=== PATIENT | female | born 1970 | race Two or more races ===

== ENCOUNTER 2016-05-01 06:59 | Outpatient (CLI) | payer BC, OTHER ==
[~2016-05-01 06:59] MED LIST: FERR325T28 PO; LEVO75TA PO; SUMA25TA PO
[2016-05-01 08:27] LABS: BASOPHILS % (AUTO) 0.3 % (0.0-2.0); DIFF TOTAL % 100 %; EOSINOPHILS # (AUTO) 0.1 /CMM (0.0-0.7); EOSINOPHILS % (AUTO) 2.1 % (0.0-6.0); HEMATOCRIT 41 % (33-45); HEMOGLOBIN 13.6 g/dL (11.5-14.8); LYMPHOCYTES # (AUTO) 2.2 /CMM (0.8-4.8); LYMPHOCYTES % (AUTO) 34.5 % (20.0-44.0); MEAN CORPUSCULAR HEMOGLOBIN 29 PG (26.0-33.0); MEAN CORPUSCULAR HGB CONC 33 g/dl (31.0-36.0); MEAN CORPUSCULAR VOLUME 88 fL (82-100); MONOCYTES # (AUTO) 0.4 /CMM (0.1-1.30); MONOCYTES % (AUTO) 5.8 % (2.0-12.0); NEUTROPHILS # (AUTO) 3.7 /CMM (1.8-8.9); NEUTROPHILS % (AUTO) 57.3 % (43.0-81.0); PLATELET COUNT (AUTO) 322 /CMM (150-450); RED BLOOD CELL COUNT(AUTO) 4.63 MIL/uL (4.0-5.2); WHITE BLOOD COUNT (AUTO) 6.5 K/uL (4.3-11.0)
[2016-05-01 08:33] LABS: ALBUMIN 3.8 g/dL (3.4-5.0); BILIRUBIN,TOTAL 0.3 mg/dL (0.2-1.0); CALCIUM, SERUM 9.2 mg/dL (8.5-10.1); CREATININE 0.6 mg/dL (0.6-1.3)
[2016-05-01 08:41] LABS: THYROID STIMULATING HORMONE 2.786 uIU/mL (0.358-3.74)
== END 2016-05-01 23:59 | disposition home or self-care (01) ==
LOC: LAB 06:59
DX: K21.9 Gastro-esophageal reflux disease without esophagitis (principal); E03.9 Hypothyroidism, unspecified; D64.9 Anemia, unspecified
CPT/HCPCS: 36415; 80053-TC; 84443-TC; 85025-TC

== ENCOUNTER 2016-05-12 18:20 | Emergency (ER) | payer BC, OTHER ==
[~2016-05-12] VITALS: Ht 165.1 cm; Wt 68.9 kg
[2016-05-12 18:20] VITALS: BP 129/80
[2016-05-12] MEDS ORDERED: IV NS 0.9% 1,000 ML BAG IV ONE (19:00)
[2016-05-12] MEDS ORDERED: METOCLOPRAMIDE HCL 10 MG/2 ML VIAL IV ONE (19:00)
[2016-05-12] MEDS ORDERED: KETOROLAC TROMETHAMINE INJ 30 MG/ML VIAL IV ONE (19:00)
[2016-05-12] MEDS ORDERED: METOCLOPRAMIDE HCL 10 MG/2 ML VIAL ONE (19:10)
[2016-05-12] MEDS ORDERED: IV NS 0.9% 1,000 ML ONE (19:10)
[2016-05-12] MEDS ORDERED: KETOROLAC TROMETHAMINE INJ 30 MG/ML VIAL ONE (19:10)
[2016-05-12] MEDS ORDERED: IV SET PRIMARY 1 EA INFUS.SET MC ONE (19:10)
== END 2016-05-12 21:30 | disposition home or self-care (01) ==
LOC: ER 18:22
DX: G43.909 Migraine, unspecified, not intractable, without status migrainosus (principal); E03.9 Hypothyroidism, unspecified; R11.2 Nausea with vomiting, unspecified; Z90.49 Acquired absence of other specified parts of digestive tract; Z88.6 Allergy status to analgesic agent; Z88.8 Allergy status to other drugs, medicaments and biological substances
CPT/HCPCS: 70450-TC; A4606; J1885; J2765; J7030; Z7610

== ENCOUNTER 2016-10-17 12:10 | Outpatient (CLI) | payer BC | END 2016-10-17 23:59 | disposition home or self-care (01) | LOC: WOU 12:10 | PROVIDERS: ATTEND Podiatrist Foot & Ankle Surgery | DX: L84 Corns and callosities (principal); Z80.1 Family history of malignant neoplasm of trachea, bronchus and lung; Z80.0 Family history of malignant neoplasm of digestive organs; Z90.710 Acquired absence of both cervix and uterus; M20.41 Other hammer toe(s) (acquired), right foot; R60.0 Localized edema | CPT/HCPCS: 73630; 99214; A6402; G0463 ==

== ENCOUNTER 2016-11-02 13:27 | Emergency (ER) | payer BC, OTHER ==
[~2016-11-02] VITALS: Ht 162.6 cm; Wt 65.8 kg
--- NOTE | 2016-11-02 13:40 | NUR ---
PT TO ED ROOM 02. MIGRANE HEADACHE SINCE 299 WITH NO RELIEF FROM OTC MEDICATION . A/A/O. SIDE RAILS UP. HOB ELEVATED. CONNECTED TO [facility]. SEEN ND EVALUATED BY ED PROVIDER.
[2016-11-02] MEDS ORDERED: METOCLOPRAMIDE HCL 10 MG/2 ML VIAL IV ONE (14:00)
[2016-11-02] MEDS ORDERED: diphenhydrAMINE HCL 50 MG/ML VIAL IV ONE (14:00)
[2016-11-02] MEDS ORDERED: IV NS 0.9% 1,000 ML BAG IV ONE (14:00)
[2016-11-02] MEDS ORDERED: KETOROLAC TROMETHAMINE INJ 30 MG/ML VIAL IV ONE (14:00)
--- NOTE | 2016-11-02 14:22 | NUR ---
R AC G 18 IV STARTED.
--- NOTE | 2016-11-02 14:51 | NUR ---
MARY JANE Guy PA-C.
[2016-11-02] MEDS ORDERED: KETOROLAC TROMETHAMINE INJ 30 MG/ML VIAL ONE (14:52)
[2016-11-02] MEDS ORDERED: METOCLOPRAMIDE HCL 10 MG/2 ML VIAL ONE (14:53)
--- NOTE | 2016-11-02 15:54 | NUR ---
IV removed. Catheter intact and site benign. Pressure and 4x4 applied to site. No bleeding noted.Patient discharged to home in stable condition. Written and verbal after care instructions given. Patient verbalizes understanding of instruction.
[2016-11-02 15:55] VITALS: BP 118/72
== END 2016-11-02 15:56 | disposition home or self-care (01) ==
LOC: ER 13:29
DX: G43.909 Migraine, unspecified, not intractable, without status migrainosus (principal); E03.9 Hypothyroidism, unspecified; Z90.710 Acquired absence of both cervix and uterus; Z90.49 Acquired absence of other specified parts of digestive tract; Z88.6 Allergy status to analgesic agent; Z88.8 Allergy status to other drugs, medicaments and biological substances
CPT/HCPCS: 84703; 96361; 96374; 96375; 99284; A4606; J1885; J2765; J7030 ×2; Z7610

== ENCOUNTER 2017-01-10 12:22 | Emergency (ER) | payer BC, OTHER ==
[~2017-01-10] VITALS: Ht 162.6 cm; Wt 65.8 kg
[2017-01-10 12:22] VITALS: BP 118/78
[2017-01-10 12:50] LABS: APPEARANCE,URINE Clear (CLEAR); BILIRUBIN,URINE Negative (NEGATIVE); BLOOD, URINE Small Ery/uL (NEGATIVE); COLOR,URINE Yellow (YELLOW); KETONES,URINE Negative (NEGATIVE); LEUKOCYTE ESTERASE ,URINE Small (NEGATIVE); NITRITE, URINE Negative (NEGATIVE); PROTEIN,URINE Negative (NEGATIVE); UGLUCOSE Negative (NEGATIVE); UROBILINOGEN,URINE 0.2 EU/dL (0.2)
[2017-01-10 12:52] LABS: BACTERIA,URINE Few /HPF (None Seen); SQUAMOUS EPITHELIAL CELL,UR Few /HPF (None Seen)
== END 2017-01-10 13:10 | disposition home or self-care (01) ==
LOC: ER 12:26
DX: N39.0 Urinary tract infection, site not specified (principal); E03.9 Hypothyroidism, unspecified; G43.909 Migraine, unspecified, not intractable, without status migrainosus; Z90.710 Acquired absence of both cervix and uterus; Z79.899 Other long term (current) drug therapy
CPT/HCPCS: 81001; 84703; 99283; A4606; Z7610; 81000-TC

== ENCOUNTER 2017-04-03 12:00 | Emergency (ER) | payer BC, OTHER ==
[~2017-04-03] VITALS: Ht 165.1 cm; Wt 65.8 kg
[2017-04-03 12:00] VITALS: BP 127/75
[2017-04-03] MEDS ORDERED: HEPATITIS B VIRUS VACCINE-PF 20 MCG/VIAL VIAL IM ONE ×2 (14:00→14:08)
== END 2017-04-03 14:25 | disposition home or self-care (01) ==
LOC: ER 12:05
DX: Z77.21 Contact with and (suspected) exposure to potentially hazardous body fluids (principal); E03.9 Hypothyroidism, unspecified; Z90.710 Acquired absence of both cervix and uterus; Z90.49 Acquired absence of other specified parts of digestive tract; Z88.6 Allergy status to analgesic agent; Z88.8 Allergy status to other drugs, medicaments and biological substances; Z88.5 Allergy status to narcotic agent; W46.0XXA Contact with hypodermic needle, initial encounter; Y92.89 Other specified places as the place of occurrence of the external cause; Y93.89 Activity, other specified; Y99.0 Civilian activity done for income or pay
CPT/HCPCS: 36415; 86704; 86705; 86706; 86803; 90471; 99284; A4606; Z7610

== ENCOUNTER 2017-06-07 09:47 | Emergency (ER) | payer BC, OTHER ==
[~2017-06-07] VITALS: Ht 170.2 cm; Wt 72.6 kg
[2017-06-07] MEDS ORDERED: HYDROCODONE/APAP 5/325MG 1 EACH TABLET ONE (10:51)
[2017-06-07] MEDS ORDERED: ONDANSETRON 4 MG TAB.RAPDIS ONE (10:51)
[2017-06-07] MEDS ORDERED: SUMATRIPTAN SUCCINATE 6 MG/0.5 ML VIAL SQ ONE ×2 (10:51→11:00)
[2017-06-07] MEDS ORDERED: ONDANSETRON 4 MG TAB.RAPDIS PO ONE (11:00)
[2017-06-07] MEDS ORDERED: HYDROCODONE/APAP 5/325MG 1 EACH TABLET PO ONE (11:00)
--- NOTE | 2017-06-07 11:40 | NUR ---
Patient discharged to home in stable condition. Written and verbal after care instructions given. Patient verbalizes understanding of instruction.
[2017-06-07 11:59] VITALS: BP 128/71
== END 2017-06-07 12:00 | disposition home or self-care (01) ==
LOC: ER 09:48
DX: G43.909 Migraine, unspecified, not intractable, without status migrainosus (principal); E03.9 Hypothyroidism, unspecified; Z88.5 Allergy status to narcotic agent; Z90.710 Acquired absence of both cervix and uterus; Z88.6 Allergy status to analgesic agent; Z88.8 Allergy status to other drugs, medicaments and biological substances; Z90.49 Acquired absence of other specified parts of digestive tract
CPT/HCPCS: 96372; 99283; A4606 ×2; J3030; Q0162; Z7610 ×2

== ENCOUNTER 2017-07-11 19:43 | Emergency (ER) | payer BC ==
[~2017-07-11] VITALS: Ht 170.2 cm; Wt 72.6 kg
--- NOTE | 2017-07-11 20:00 | NUR ---
BB FAMILY C/O MIGRAINES WITH NAUSEA X1 DAY. VSS. AWAITING FOR EVALUATION. SAFETY AND COMFORT MEASURES PROVIDED. WILL MONITOR.
--- NOTE | 2017-07-11 21:30 | NUR ---
IV ACCESS STARTED. MEDICATED ORDERED.
[2017-07-11] MEDS ORDERED: diphenhydrAMINE HCL 50 MG/ML VIAL ONE (21:45)
[2017-07-11] MEDS ORDERED: METOCLOPRAMIDE HCL 10 MG/2 ML VIAL ONE (21:45)
[2017-07-11] MEDS ORDERED: KETOROLAC TROMETHAMINE INJ 30 MG/ML VIAL ONE (21:45)
[2017-07-11] MEDS ORDERED: METOCLOPRAMIDE HCL 10 MG/2 ML VIAL IV ONE (22:00)
[2017-07-11] MEDS ORDERED: IV NS 0.9% 250 ML BAG IV ONE (22:00)
[2017-07-11] MEDS ORDERED: diphenhydrAMINE HCL 50 MG/ML VIAL IV ONE (22:00)
[2017-07-11] MEDS ORDERED: KETOROLAC TROMETHAMINE INJ 30 MG/ML VIAL IV ONE (22:00)
--- NOTE | 2017-07-11 22:10 | NUR ---
PT REPORTS FEELING ANXIOUS. CHECK WRITING MACHINE OPERATOR MADE AWARE. ORDERS CARRIED OUT.
[2017-07-11] MEDS ORDERED: LORAZEPAM INJ 2 MG/ML VIAL ONE (22:18)
[2017-07-11] MEDS ORDERED: LORAZEPAM INJ 2 MG/ML VIAL IV ONE (22:30)
--- NOTE | 2017-07-11 23:05 | NUR ---
Pt ambulatory with a steady gait.
--- NOTE | 2017-07-11 23:10 | NUR ---
Patient discharged to home in stable condition. Written and verbal after care instructions given. Patient verbalizes understanding of instruction.
[2017-07-11 23:11] VITALS: BP 122/77
== END 2017-07-11 23:13 | disposition home or self-care (01) ==
LOC: ER 19:45
DX: G43.909 Migraine, unspecified, not intractable, without status migrainosus (principal); R11.0 Nausea; E03.9 Hypothyroidism, unspecified; Z90.49 Acquired absence of other specified parts of digestive tract; Z90.710 Acquired absence of both cervix and uterus; Z88.5 Allergy status to narcotic agent; Z88.8 Allergy status to other drugs, medicaments and biological substances
CPT/HCPCS: 96374; 96375; 99284; A4606; J1200; J1885; J2060; J2765; J7050; Z7610

== ENCOUNTER 2017-08-01 07:30 | Outpatient (CLI) | payer BC ==
[2017-08-01 09:04] LABS: APPEARANCE,URINE SL CLOUDY (CLEAR); BILIRUBIN,URINE NEGATIVE (NEGATIVE); BLOOD, URINE 2+ Ery/uL (NEGATIVE); COLOR,URINE YELLOW (YELLOW); KETONES,URINE NEGATIVE (NEGATIVE); LEUKOCYTE ESTERASE ,URINE NEGATIVE (NEGATIVE); NITRITE, URINE NEGATIVE (NEGATIVE); PROTEIN,URINE NEGATIVE (NEGATIVE); UGLUCOSE NEGATIVE (NEGATIVE); UROBILINOGEN,URINE 0.2 EU/dL (0.2)
[2017-08-01 09:11] LABS: BASOPHILS % (AUTO) 0.6 % (0.0-2.0); HEMATOCRIT 42 % (33-45); HEMOGLOBIN 14.3 g/dL (11.5-14.8); LYMPHOCYTES # (AUTO) 2.2 /CMM (0.8-4.8); LYMPHOCYTES % (AUTO) 35.9 % (20.0-44.0); MEAN CORPUSCULAR HGB CONC 35 g/dl (31.0-36.0); MEAN CORPUSCULAR VOLUME 86 fL (82-100); MONOCYTES # (AUTO) 0.4 /CMM (0.1-1.30); MONOCYTES % (AUTO) 5.9 % (2.0-12.0); NEUTROPHILS # (AUTO) 3.3 /CMM (1.8-8.9); NEUTROPHILS % (AUTO) 54.6 % (43.0-81.0); PLATELET COUNT (AUTO) 337 /CMM (150-450); RDW COEFFICIENT OF VARIATION 12.6 (11.5-15.0); WHITE BLOOD COUNT (AUTO) 6.1 K/uL (4.3-11.0)
[2017-08-01 09:39] LABS: BACTERIA,URINE Few /HPF (None Seen); SQUAMOUS EPITHELIAL CELL,UR Few /HPF (None Seen); WBC,URINE 0-2 /HPF (0-3)
[2017-08-01 09:45] LABS: ALBUMIN 3.9 g/dL (3.4-5.0); BILIRUBIN,TOTAL 0.3 mg/dL (0.2-1.0); CALCIUM, SERUM 9.6 mg/dL (8.5-10.1); CREATININE 0.6 mg/dL (0.6-1.3); POTASSIUM 4.1 mmol/L (3.5-5.1); TOTAL PROTEIN, SERUM 8.8 g/dL (6.4-8.2)
[2017-08-01 09:54] LABS: FREE T4 (FREE THYROXINE) 0.92 ng/dL (0.76-1.46); THYROID STIMULATING HORMONE 4.841 uIU/mL (0.358-3.74)
== END 2017-08-01 23:59 | disposition home or self-care (01) ==
LOC: LAB 07:30
DX: K21.9 Gastro-esophageal reflux disease without esophagitis (principal); E03.9 Hypothyroidism, unspecified; R53.81 Other malaise; R53.83 Other fatigue
CPT/HCPCS: 36415; 80053-TC; 80061-TC; 81000-TC; 84439-TC; 84443-TC; 84481; 85025-TC

== ENCOUNTER 2017-08-30 06:31 | Emergency (ER) | payer BC, OTHER ==
[~2017-08-30] VITALS: Ht 170.2 cm; Wt 63.5 kg
[2017-08-30 06:40] VITALS: BP 103/70
== END 2017-08-30 08:19 | disposition home or self-care (01) ==
LOC: ER 06:32
DX: S60.10XA Contusion of unspecified finger with damage to nail, initial encounter (principal); G43.909 Migraine, unspecified, not intractable, without status migrainosus; E03.9 Hypothyroidism, unspecified; Z90.710 Acquired absence of both cervix and uterus; Z90.49 Acquired absence of other specified parts of digestive tract; F41.9 Anxiety disorder, unspecified; Z88.5 Allergy status to narcotic agent; Z88.8 Allergy status to other drugs, medicaments and biological substances; W23.0XXA Caught, crushed, jammed, or pinched between moving objects, initial encounter; Y93.89 Activity, other specified; Y92.89 Other specified places as the place of occurrence of the external cause; Y99.8 Other external cause status
CPT/HCPCS: 29130; 73130; 99284; A4606; Z7610

== ENCOUNTER 2017-09-11 13:22 | Outpatient (CLI) | payer BC ==
[2017-09-12 08:08] LABS: FOLLICLE STIMULATION HORMONE 74.6 mIU/mL (.); LUTEINIZING HORMONE 35.8 mIU/mL (.); PROLACTIN 7.3 ng/mL (4.8-23.3)
== END 2017-09-11 23:59 | disposition home or self-care (01) ==
LOC: LAB 13:22
DX: R53.81 Other malaise (principal); R53.83 Other fatigue
CPT/HCPCS: 36415; 82670; 83001; 83002; 84146

== ENCOUNTER 2017-12-02 07:57 | Outpatient (CLI) | payer BC ==
[2017-12-02 08:31] LABS: BASOPHILS # (AUTO) 0.1 /CMM (0.0-0.2); BASOPHILS % (AUTO) 0.9 % (0.0-2.0); EOSINOPHILS % (AUTO) 1.9 % (0.0-6.0); HEMATOCRIT 38 % (33-45); HEMOGLOBIN 12.6 g/dL (11.5-14.8); LYMPHOCYTES # (AUTO) 2.5 /CMM (0.8-4.8); LYMPHOCYTES % (AUTO) 42.3 % (20.0-44.0); MEAN CORPUSCULAR HEMOGLOBIN 30 PG (26.0-33.0); MEAN CORPUSCULAR HGB CONC 33 g/dl (31.0-36.0); MEAN CORPUSCULAR VOLUME 90 fL (82-100); MONOCYTES # (AUTO) 0.4 /CMM (0.1-1.30); MONOCYTES % (AUTO) 7.4 % (2.0-12.0); NEUTROPHILS # (AUTO) 2.8 /CMM (1.8-8.9); NEUTROPHILS % (AUTO) 47.5 % (43.0-81.0); PLATELET COUNT (AUTO) 324 /CMM (150-450); RDW COEFFICIENT OF VARIATION 13.4 (11.5-15.0); RED BLOOD CELL COUNT(AUTO) 4.25 MIL/uL (4.0-5.2); WHITE BLOOD COUNT (AUTO) 5.9 K/uL (4.3-11.0)
[2017-12-02 08:42] LABS: ALBUMIN 3.6 g/dL (3.4-5.0); BILIRUBIN,TOTAL 0.2 mg/dL (0.2-1.0); CALCIUM, SERUM 8.5 mg/dL (8.5-10.1); CREATININE 0.6 mg/dL (0.6-1.3); TOTAL PROTEIN, SERUM 7.7 g/dL (6.4-8.2)
[2017-12-02 08:52] LABS: APPEARANCE,URINE SL CLOUDY (CLEAR); BILIRUBIN,URINE NEGATIVE (NEGATIVE); BLOOD, URINE 1+ Ery/uL (NEGATIVE); COLOR,URINE YELLOW (YELLOW); KETONES,URINE NEGATIVE (NEGATIVE); LEUKOCYTE ESTERASE ,URINE NEGATIVE (NEGATIVE); NITRITE, URINE NEGATIVE (NEGATIVE); PROTEIN,URINE NEGATIVE (NEGATIVE); UGLUCOSE NEGATIVE (NEGATIVE); UROBILINOGEN,URINE 0.2 EU/dL (0.2)
[2017-12-02 08:56] LABS: INR 0.93 (0.87-1.13)
[2017-12-02 09:04] LABS: BACTERIA,URINE Moderate /HPF (None Seen)
[2017-12-02 09:05] LABS: SQUAMOUS EPITHELIAL CELL,UR Moderate /HPF (None Seen); WBC,URINE 0-2 /HPF (0-3)
== END 2017-12-02 23:59 | disposition home or self-care (01) ==
LOC: LAB 07:57
DX: K21.9 Gastro-esophageal reflux disease without esophagitis (principal); R05 Cough; R53.83 Other fatigue
CPT/HCPCS: 36415; 71046; 80053-TC; 81000-TC; 85025-TC; 85610-TC; 85730-TC; 87086-TC

== ENCOUNTER 2017-12-06 06:23 | Day surgery (SDC) | payer BC ==
[2017-12-06] MEDS ORDERED: FENTANYL PF 100MCG/2ML AMPUL ONE ×2 (08:12→09:46)
[2017-12-06] MEDS ORDERED: MIDAZOLAM HCL 2 MG/2ML VIAL ONE (08:12)
[2017-12-06] MEDS ORDERED: BUPIVACAINE MPF 0.5% W/EPI INJ 30 ML VIAL ONE (08:38)
[2017-12-06] MEDS ORDERED: ONDANSETRON HCL/PF 4 MG/2 ML VIAL ONE (11:06)
== END 2017-12-06 12:35 | disposition home or self-care (01) ==
LOC: DS 06:23
PROVIDERS: ATTEND Surgery
DX: K40.90 Unilateral inguinal hernia, without obstruction or gangrene, not specified as recurrent (principal); K21.9 Gastro-esophageal reflux disease without esophagitis; E03.9 Hypothyroidism, unspecified; Z90.49 Acquired absence of other specified parts of digestive tract; Z80.9 Family history of malignant neoplasm, unspecified; Z79.899 Other long term (current) drug therapy
CPT/HCPCS: 49650; 64488; C1781; A6402; J0690; J2250; J2405; J2704; J2710; J3010; J3490; Z7610

== ENCOUNTER 2018-05-12 06:38 | Outpatient (CLI) | payer BC ==
[2018-05-12 08:38] LABS: BASOPHILS % (AUTO) 0.9 % (0.0-2.0); EOSINOPHILS % (AUTO) 2.5 % (0.0-6.0); HEMATOCRIT 42 % (33-45); HEMOGLOBIN 13.8 g/dL (11.5-14.8); LYMPHOCYTES # (AUTO) 2.4 /CMM (0.8-4.8); LYMPHOCYTES % (AUTO) 42.2 % (20.0-44.0); MEAN CORPUSCULAR HGB CONC 33 g/dl (31.0-36.0); MEAN CORPUSCULAR VOLUME 91 fL (82-100); MONOCYTES # (AUTO) 0.3 /CMM (0.1-1.30); MONOCYTES % (AUTO) 6.1 % (2.0-12.0); NEUTROPHILS # (AUTO) 2.7 /CMM (1.8-8.9); NEUTROPHILS % (AUTO) 48.3 % (43.0-81.0); PLATELET COUNT (AUTO) 309 /CMM (150-450); WHITE BLOOD COUNT (AUTO) 5.6 K/uL (4.3-11.0)
[2018-05-12 08:50] LABS: ALBUMIN 3.9 g/dL (3.4-5.0); BILIRUBIN,TOTAL 0.3 mg/dL (0.2-1.0); CREATININE 0.4 mg/dL (0.6-1.3)
[2018-05-12 08:56] LABS: T4 (THYROXINE) 8.7 ug/dL (4.7-13.3); THYROID STIMULATING HORMONE 4.853 uIU/mL (0.358-3.74)
[2018-05-12 10:17] LABS: APPEARANCE,URINE CLEAR (CLEAR); BILIRUBIN,URINE NEGATIVE (NEGATIVE); BLOOD, URINE 1+ Ery/uL (NEGATIVE); COLOR,URINE YELLOW (YELLOW); KETONES,URINE NEGATIVE (NEGATIVE); LEUKOCYTE ESTERASE ,URINE NEGATIVE (NEGATIVE); NITRITE, URINE NEGATIVE (NEGATIVE); PROTEIN,URINE NEGATIVE (NEGATIVE); UGLUCOSE NEGATIVE (NEGATIVE); UROBILINOGEN,URINE 0.2 EU/dL (0.2)
[2018-05-12 10:26] LABS: BACTERIA,URINE 1+ /HPF (None Seen)
[2018-05-12 10:27] LABS: SQUAMOUS EPITHELIAL CELL,UR Many /HPF (None Seen)
[2018-05-12 10:46] LABS: FREE T4 (FREE THYROXINE) 0.92 ng/dL (0.76-1.46)
== END 2018-05-12 23:59 | disposition home or self-care (01) ==
LOC: LAB 06:38
DX: D64.9 Anemia, unspecified (principal); E03.9 Hypothyroidism, unspecified; K21.9 Gastro-esophageal reflux disease without esophagitis; R53.81 Other malaise; R53.83 Other fatigue
CPT/HCPCS: 36415; 80053-TC; 81000-TC; 84436-TC; 84439-TC; 84443-TC; 84481; 85025-TC

== ENCOUNTER 2018-05-19 14:51 | Outpatient (CLI) | payer BC | END 2018-05-19 23:59 | disposition home or self-care (01) | LOC: LAB 14:51 | DX: R74.8 Abnormal levels of other serum enzymes (principal) | CPT/HCPCS: 36415; 80074; 86706; 86709-TC; 87340 ==

== ENCOUNTER 2018-06-10 08:57 | Outpatient (CLI) | payer BC | END 2018-06-10 23:59 | disposition home or self-care (01) | LOC: US 08:57 | DX: R94.5 Abnormal results of liver function studies (principal); R10.9 Unspecified abdominal pain | CPT/HCPCS: 76700-TC ==

== ENCOUNTER 2018-06-12 08:02 | Outpatient (CLI) | payer BC ==
[2018-06-12 08:42] LABS: ALBUMIN 3.9 g/dL (3.4-5.0); BILIRUBIN,TOTAL 0.3 mg/dL (0.2-1.0); CALCIUM, SERUM 9.1 mg/dL (8.5-10.1); CREATININE 0.6 mg/dL (0.6-1.3); POTASSIUM 3.9 mmol/L (3.5-5.1)
[2018-06-12 08:51] LABS: THYROID STIMULATING HORMONE 1.677 uIU/mL (0.358-3.74)
== END 2018-06-12 23:59 | disposition home or self-care (01) ==
LOC: LAB 08:02
DX: E03.9 Hypothyroidism, unspecified (principal); R94.5 Abnormal results of liver function studies
CPT/HCPCS: 36415; 80053-TC; 84439-TC; 84443-TC; 84481

== ENCOUNTER → 2018-09-02 | Emergency (ER) | payer BC, OTHER ==
[~2018-09-02] VITALS: Ht 165.1 cm; Wt 69.9 kg
[~2018-09-02] MED LIST changes: +DIAZEPAM 5 MG TABLET ONE; +DIAZEPAM 5 MG TABLET PO ONE; +IV NS 0.9% 1,000 ML BAG IV ONE; +LORAZEPAM 1 MG TABLET PO ONE; +ONDANSETRON 4 MG TAB.RAPDIS ONE; +ONDANSETRON 4 MG TAB.RAPDIS SL ONE
--- NOTE | 2018-09-02 17:50 | NUR ---
PT BIBFAMILY FROM HOME FOR C/O DIZZINESS, ALSO N/V X THIS AM; PT AAOX4, PT AMBULATORY, PT ON MONITOR, VSS, NAD NOTED PENDING MD PARISH
[2018-09-02 18:04] VITALS: BP 128/80
--- NOTE | 2018-09-02 19:24 | NUR ---
RESTING IN BED AWAKE AND ALERT. REPORTED FEELING BETTER. FAMILY AT THE BED SIDE. WILL CONT TO MONITOR
--- NOTE | 2018-09-02 19:40 | NUR ---
Patient discharged to home in stable condition. Written and verbal after care instructions given. Patient verbalizes understanding of instruction. Pt was instructed not to drive
== END | disposition home or self-care (01) ==
LOC: ER 17:43
DX: H81.10 Benign paroxysmal vertigo, unspecified ear (principal); E03.9 Hypothyroidism, unspecified; G43.909 Migraine, unspecified, not intractable, without status migrainosus; Z90.49 Acquired absence of other specified parts of digestive tract; Z90.710 Acquired absence of both cervix and uterus; Z88.6 Allergy status to analgesic agent; Z88.8 Allergy status to other drugs, medicaments and biological substances; Z79.899 Other long term (current) drug therapy
CPT/HCPCS: 99283; Q0162

== ENCOUNTER 2019-05-19 09:20 | Outpatient (CLI) | payer BC ==
[~2019-05-19 09:20] MED LIST changes: -DIAZEPAM 5 MG TABLET ONE; -DIAZEPAM 5 MG TABLET PO ONE; -IV NS 0.9% 1,000 ML BAG IV ONE; -LORAZEPAM 1 MG TABLET PO ONE; -ONDANSETRON 4 MG TAB.RAPDIS ONE; -ONDANSETRON 4 MG TAB.RAPDIS SL ONE
[2019-05-19 10:29] LABS: BASOPHILS # (AUTO) 0.1 /CMM (0.0-0.2); BASOPHILS % (AUTO) 0.9 % (0.0-2.0); EOSINOPHILS % (AUTO) 1.6 % (0.0-6.0); HEMATOCRIT 41 % (33-45); HEMOGLOBIN 13.8 g/dL (11.5-14.8); LYMPHOCYTES % (AUTO) 31.7 % (20.0-44.0); MEAN CORPUSCULAR HGB CONC 34 g/dl (31.0-36.0); MEAN CORPUSCULAR VOLUME 91 fL (82-100); MONOCYTES # (AUTO) 0.4 /CMM (0.1-1.30); MONOCYTES % (AUTO) 6.6 % (2.0-12.0); NEUTROPHILS # (AUTO) 3.8 /CMM (1.8-8.9); NEUTROPHILS % (AUTO) 59.2 % (43.0-81.0); PLATELET COUNT (AUTO) 293 /CMM (150-450); RED BLOOD CELL COUNT(AUTO) 4.52 MIL/uL (4.0-5.2); WHITE BLOOD COUNT (AUTO) 6.5 K/uL (4.3-11.0)
[2019-05-19 10:37] LABS: APPEARANCE,URINE SL CLOUDY (CLEAR); BILIRUBIN,URINE NEGATIVE (NEGATIVE); BLOOD, URINE SMALL Ery/uL (NEGATIVE); COLOR,URINE YELLOW (YELLOW); KETONES,URINE NEGATIVE (NEGATIVE); LEUKOCYTE ESTERASE ,URINE NEGATIVE (NEGATIVE); NITRITE, URINE NEGATIVE (NEGATIVE); PH,URINE 6.5 (5.0-8.0); PROTEIN,URINE NEGATIVE (NEGATIVE); UGLUCOSE NEGATIVE (NEGATIVE); UROBILINOGEN,URINE 0.2 EU/dL (0.2)
[2019-05-19 11:00] LABS: BACTERIA,URINE Few /HPF (None Seen); RBC,URINE 0-2 /HPF (0-2); SQUAMOUS EPITHELIAL CELL,UR Many /HPF (None Seen); WBC,URINE 0-2 /HPF (0-3)
[2019-05-19 11:14] LABS: BILIRUBIN,TOTAL 0.3 mg/dL (0.2-1.0); CALCIUM, SERUM 9.3 mg/dL (8.5-10.1); CREATININE 0.6 mg/dL (0.6-1.3); POTASSIUM 3.6 mmol/L (3.5-5.1); TOTAL PROTEIN, SERUM 8.3 g/dL (6.4-8.2)
[2019-05-19 11:19] LABS: THYROID STIMULATING HORMONE 3.558 uIU/mL (0.358-3.74)
== END 2019-05-19 23:59 | disposition home or self-care (01) ==
LOC: LAB 09:20
PROVIDERS: ATTEND Legal Medicine
DX: E03.9 Hypothyroidism, unspecified (principal)
CPT/HCPCS: 36415; 80053-TC; 81000-TC; 84439-TC; 84443-TC; 84481; 85025-TC

== ENCOUNTER 2019-10-26 13:34 | Emergency (ER) | payer BC, OTHER ==
[~2019-10-26] VITALS: Ht 165.1 cm; Wt 68.0 kg
[2019-10-26 13:46] VITALS: BP 110/62
== END 2019-10-26 14:51 | disposition home or self-care (01) ==
LOC: ER 13:42
DX: U07.1 COVID-19 (principal); E03.9 Hypothyroidism, unspecified; Z90.710 Acquired absence of both cervix and uterus; Z90.49 Acquired absence of other specified parts of digestive tract; Z86.69 Personal history of other diseases of the nervous system and sense organs; Z79.890 Hormone replacement therapy
CPT/HCPCS: 99283; C9803; U0003

== ENCOUNTER 2019-11-02 11:35 | Emergency (ER) | payer BC, OTHER ==
[~2019-11-02] VITALS: Ht 167.6 cm; Wt 70.3 kg
[2019-11-02] MEDS ORDERED: DEXAMETHASONE SOD PHOSPHATE 10 MG/ML VIAL IV ONE (12:00)
[2019-11-02] MEDS ORDERED: ONDANSETRON HCL/PF - ER 4 MG/2 ML VIAL IV ONE (12:00)
[2019-11-02] MEDS ORDERED: IV NS 0.9% 1,000 ML IV ONE (12:00)
[2019-11-02] MEDS ORDERED: ONDANSETRON HCL/PF 4 MG/2 ML VIAL ONE (12:02)
[2019-11-02] MEDS ORDERED: DEXAMETHASONE SOD PHOSPHATE 10 MG/ML VIAL ONE (12:03)
--- NOTE | 2019-11-02 12:19 | NUR ---
BIBS FROM HOME TO ER BED 5. AAOX4. NOT IN RESP DISTRESS, BREATHING EVEN AND UNLABORED. AMBULATORY. CAME IN FOR ABDOMINAL PAIN. PER PT, SHE BEEN HAVING FEVER FOR THE PAST 10 DAYS, COVID POSITIVE SINCE 10/26/19 AND BEEN TAKING IBUPROPHEN AND TYLENOL TO RELIEVE THE FEVER. NOT SHE IS HAVING EPIGASTRIC PAIN WHICH IS BURNING IN SENSATION, NAUSEA, VOMMITING AND DIARRHEA. PT IS ALSO CPMPLAINING OF POOR APPETITE AND WEAKNESS. MD WAS AT THE BEDSIDE FOR EVAL. ORDERS RECEIVED NOTED AND RONALD OUT. IV LINE OBTAINED ON THE L AC 18G, BLOOD DRAWN AND GIVEN TO LOGISTICS LOSS PREVENTION MANAGER AT BEDSIDE.
[2019-11-02 12:22] LABS: BASOPHILS % (AUTO) 0.6 % (0.0-2.0); EOSINOPHILS % (AUTO) 0.2 % (0.0-6.0); HEMATOCRIT 45 % (33-45); HEMOGLOBIN 14.9 g/dL (11.5-14.8); LYMPHOCYTES % (AUTO) 27.8 % (20.0-44.0); MEAN CORPUSCULAR HGB CONC 33 g/dl (31.0-36.0); MEAN CORPUSCULAR VOLUME 91 fL (82-100); MONOCYTES % (AUTO) 6.6 % (2.0-12.0); NEUTROPHILS % (AUTO) 64.8 % (43.0-81.0); PLATELET COUNT (AUTO) 253 /CMM (150-450); RED BLOOD CELL COUNT(AUTO) 4.95 MIL/uL (4.0-5.2); WHITE BLOOD COUNT (AUTO) 5.5 K/uL (4.3-11.0)
[2019-11-02 12:23] LABS: LYMPHOCYTES # (AUTO) 1.5 /CMM (0.8-4.8); MONOCYTES # (AUTO) 0.4 /CMM (0.1-1.30); NEUTROPHILS # (AUTO) 3.6 /CMM (1.8-8.9)
[2019-11-02 12:41] LABS: CALCIUM, SERUM 9.4 mg/dL (8.5-10.1); CREATININE 0.6 mg/dL (0.6-1.3); POTASSIUM 3.5 mmol/L (3.5-5.1)
[2019-11-02 12:55] LABS: ALBUMIN 3.7 g/dL (3.4-5.0); BILIRUBIN,DIRECT 0.1 mg/dL (0.0-0.2); BILIRUBIN,TOTAL 0.4 mg/dL (0.2-1.0); TOTAL PROTEIN, SERUM 8.5 g/dL (6.4-8.2)
[2019-11-02 13:16] VITALS: BP 123/72
--- NOTE | 2019-11-02 13:16 | NUR ---
Patient discharged to home in stable condition. Written and verbal after care instructions given. Patient verbalizes understanding of instruction.IV removed. Catheter intact and site benign. Pressure and 4x4 applied to site. No bleeding noted. Pt ambulatory with a steady gait
== END 2019-11-02 13:17 | disposition home or self-care (01) ==
LOC: ER 11:38
DX: U07.1 COVID-19 (principal); B34.9 Viral infection, unspecified; R11.2 Nausea with vomiting, unspecified; G43.909 Migraine, unspecified, not intractable, without status migrainosus; E03.9 Hypothyroidism, unspecified; Z90.49 Acquired absence of other specified parts of digestive tract; Z98.890 Other specified postprocedural states; Z88.6 Allergy status to analgesic agent; Z88.8 Allergy status to other drugs, medicaments and biological substances; Z79.899 Other long term (current) drug therapy
CPT/HCPCS: 36415; 71045; 80048; 80076; 85025; 96361; 96374; 96375; 99284; J1100; J2405 ×2; J7030

== ENCOUNTER 2021-01-30 15:05 | Outpatient (CLI) | payer BC, OTHER ==
[2021-01-30 16:05] LABS: BASOPHILS # (AUTO) 0.1 K/uL (0.0-0.2); BASOPHILS % (AUTO) 1.1 % (0.0-2.0); EOSINOPHILS % (AUTO) 2.4 % (0.0-6.0); HEMATOCRIT 40 % (33-45); HEMOGLOBIN 13.4 g/dL (11.5-14.8); LYMPHOCYTES # (AUTO) 2.6 K/uL (0.8-4.8); LYMPHOCYTES % (AUTO) 37.3 % (20.0-44.0); MEAN CORPUSCULAR HGB CONC 33 g/dl (31.0-36.0); MEAN CORPUSCULAR VOLUME 92 fL (82-100); MONOCYTES # (AUTO) 0.5 K/uL (0.1-1.30); MONOCYTES % (AUTO) 6.8 % (2.0-12.0); NEUTROPHILS # (AUTO) 3.6 K/uL (1.8-8.9); NEUTROPHILS % (AUTO) 52.4 % (43.0-81.0); PLATELET COUNT (AUTO) 352 K/uL (150-450); RED BLOOD CELL COUNT(AUTO) 4.37 MIL/uL (4.0-5.2); WHITE BLOOD COUNT (AUTO) 6.8 K/uL (4.3-11.0)
[2021-01-30 16:09] LABS: BILIRUBIN,URINE NEGATIVE (NEGATIVE); COLOR,URINE YELLOW (YELLOW); LEUKOCYTE ESTERASE ,URINE NEGATIVE (NEGATIVE); NITRITE, URINE NEGATIVE (NEGATIVE); PROTEIN,URINE NEGATIVE (NEGATIVE); UGLUCOSE NEGATIVE (NEGATIVE); UROBILINOGEN,URINE 0.2 EU/dL (0.2)
[2021-01-30 16:32] LABS: FREE T4 (FREE THYROXINE) 0.91 ng/dL (0.76-1.46); THYROID STIMULATING HORMONE 3.63 uIU/mL (0.358-3.74); URIC ACID 3.4 mg/dL (2.6-7.2)
[2021-01-30 16:43] LABS: ALBUMIN 3.7 g/dL (3.4-5.0); BILIRUBIN,TOTAL 0.2 mg/dL (0.2-1.0); CALCIUM, SERUM 9.1 mg/dL (8.5-10.1); CREATININE 0.6 mg/dL (0.6-1.3); POTASSIUM 3.6 mmol/L (3.5-5.1)
[2021-01-30 17:07] LABS: BACTERIA,URINE None seen /HPF (None Seen); URINE AMORPHOUS PHOSPHATES Moderate /HPF (None Seen); WBC,URINE 0-2 /HPF (0-3)
[2021-01-31 08:06] LABS: THYROID PEROXIDASE (TPO) AB <8 IU/mL (0-34)
== END 2021-01-30 23:59 | disposition home or self-care (01) ==
LOC: LAB 15:05
PROVIDERS: ATTEND Legal Medicine
DX: E78.5 Hyperlipidemia, unspecified (principal); E03.9 Hypothyroidism, unspecified; D64.9 Anemia, unspecified; E55.9 Vitamin D deficiency, unspecified; R53.1 Weakness; Z00.00 Encounter for general adult medical examination without abnormal findings
CPT/HCPCS: 36415; 80053-TC; 80061-TC; 81001; 82306; 82607-TC; 82728-TC; 83540-TC; 84439-TC; 84443-TC; 84481; 84550-TC; 85025-TC; 86376; 86800

== ENCOUNTER 2021-03-11 18:10 | Inpatient (IN) | payer BC, OTHER ==
[~2021-03-11] VITALS: Ht 165.1 cm; Wt 70.3 kg
--- NOTE | 2021-03-11 18:10 | NUR ---
PT BIBFAMILY C/O HEADACHE /BODY PAIN AND FEVER 101.7. PT COVID VACCINATED. A/OX4. TOLERATING R/A AT 96%.
--- NOTE | 2021-03-11 20:37 | NUR ---
RELL BROOKS AT PT'S BEDSIDE
--- NOTE | 2021-03-11 20:55 | NUR ---
LAC #20G S/L; PATENT AND INTACT. BLOOD COLLECTED AND SENT TO LAB
[2021-03-11 20:56] LABS: BILIRUBIN,URINE NEGATIVE (NEGATIVE); COLOR,URINE YELLOW (YELLOW); LEUKOCYTE ESTERASE ,URINE NEGATIVE (NEGATIVE); NITRITE, URINE NEGATIVE (NEGATIVE); PROTEIN,URINE TRACE mg/dl (NEGATIVE); UGLUCOSE NEGATIVE (NEGATIVE); UROBILINOGEN,URINE 0.2 EU/dL (0.2)
[2021-03-11] MEDS ORDERED: ACETAMINOPHEN 325 MG TABLET PO ONE (21:00)
[2021-03-11] MEDS ORDERED: ONDANSETRON HCL/PF 4 MG/2 ML VIAL IVP ONE (21:00)
[2021-03-11] MEDS ORDERED: IV NS 0.9% 1,000 ML BAG IV ONE ×2 (21:00→22:30)
--- NOTE | 2021-03-11 21:06 | NUR ---
URINE, COVID ANTIGEN AND PCR SWAB COLLECTED AND SENT TO LAB
--- NOTE | 2021-03-11 21:07 | NUR ---
VAT PACKER AT PT'S BEDSIDE
[2021-03-11] MEDS ORDERED: ACETAMINOPHEN 325 MG TABLET ONE (21:08)
[2021-03-11] MEDS ORDERED: ONDANSETRON HCL/PF 4 MG/2 ML VIAL ONE (21:08)
[2021-03-11 21:22] LABS: BACTERIA,URINE 1+ /HPF (None Seen); SQUAMOUS EPITHELIAL CELL,UR Few /HPF (None Seen); URINE AMORPHOUS URATE Few /HPF (None Seen); WBC,URINE 0-2 /HPF (0-3)
[2021-03-11 22:13] LABS: ALANINE AMINOTRANSFERASE 53 U/L (12-78); ALBUMIN 3.8 g/dL (3.4-5.0); ALKALINE PHOSPHATASE 101 U/L (46-116); ASPARTATE AMINOTRANSFERASE 40 U/L (15-37); BILIRUBIN,DIRECT 0.1 mg/dL (0.0-0.2); BILIRUBIN,TOTAL 0.3 mg/dL (0.2-1.0); CALCIUM, SERUM 8.7 mg/dL (8.5-10.1); CARBON DIOXIDE 22 mmol/L (21-32); CHLORIDE 102 mmol/L (98-107); CREATININE 0.9 mg/dL (0.6-1.3); GLUCOSE 111 mg/dL (74-106); POTASSIUM 3.5 mmol/L (3.5-5.1); SODIUM SERUM 136 mmol/L (136-145); TOTAL PROTEIN, SERUM 8.2 g/dL (6.4-8.2); UREA NITROGEN, BLOOD 16 mg/dL (7-18)
[2021-03-11 22:15] LABS: BASOPHILS % (AUTO) 0.2 % (0.0-2.0); HEMATOCRIT 41 % (33-45); HEMOGLOBIN 13.8 g/dL (11.5-14.8); LYMPHOCYTES # (AUTO) 0.6 K/uL (0.8-4.8); LYMPHOCYTES % (AUTO) 3.9 % (20.0-44.0); MEAN CORPUSCULAR HGB CONC 34 g/dl (31.0-36.0); MEAN CORPUSCULAR VOLUME 90 fL (82-100); MONOCYTES # (AUTO) 0.5 K/uL (0.1-1.30); MONOCYTES % (AUTO) 3.7 % (2.0-12.0); NEUTROPHILS # (AUTO) 13.4 K/uL (1.8-8.9); NEUTROPHILS % (AUTO) 92.2 % (43.0-81.0); PLATELET COUNT (AUTO) 292 K/uL (150-450); RED BLOOD CELL COUNT(AUTO) 4.58 MIL/uL (4.0-5.2); WHITE BLOOD COUNT (AUTO) 14.6 K/uL (4.3-11.0)
[2021-03-11] MEDS ORDERED: MORPHINE SULFATE INJ 2 MG/ML DISP.SYRIN IV ONE (22:30)
[2021-03-11] MEDS ORDERED: MORPHINE SULFATE INJ 2 MG/ML DISP.SYRIN ONE (22:35)
--- NOTE | 2021-03-11 22:36 | NUR ---
PT TAKEN TO CT VIA SHRADDHA
--- NOTE | 2021-03-11 22:44 | NUR ---
MIL () AT PT'S BEDSIDE; SIGNED CONSENT FORM FOR LUMBAR PUCTURE (SPINAL TAP). VERBALIZES UNDERSTANDING
[2021-03-11] MEDS ORDERED: VANCOMYCIN 1 GM in IV D5W 250 ML IV ONE (23:30)
[2021-03-11] MEDS ORDERED: CEFTRIAXONE 2 G in IV D5W 50 ML IV ONE (23:30)
--- NOTE | 2021-03-11 23:38 | NUR ---
DR. LAU AT PT'S BEDSIDE
[2021-03-11] MEDS ORDERED: VANCOMYCIN 1 GM VIAL ONE (23:39)
[2021-03-11] MEDS ORDERED: CEFTRIAXONE 1 G VIAL ONE (23:39)
--- NOTE | 2021-03-11 23:59 | NUR ---
ER AT BEDSIDE, SPINAL TAP PROCEDURE
[2021-03-12] MEDS ORDERED: VANCOMYCIN 1 GM in IV D5W 250 ML IV SCH
[2021-03-12] MEDS ORDERED: LABETALOL 20 MG/4 ML VIAL IV PRN
--- NOTE | 2021-03-12 00:22 | NUR ---
COLLECTED INFLUENZA SWAB AND SENT TO LAB. RELL BROOKS COLLECTED SPINAL TAP FLUID AND SENT TO LAB
[2021-03-12 00:58] LABS: CSF GLUCOSE 67 mg/dL (40-70); CSF PROTEIN 30.3 mg/dL (15-45)
--- NOTE | 2021-03-12 00:58 | NUR ---
MRSA SWAB COLLECTED AND SENT TO LAB. PATIENT'S BELONGINGS LIST DONE.
--- NOTE | 2021-03-12 01:20 | NUR ---
Sruthi whitaker in [facility] - 03/12/21 at 0130 by GARRETT COVID SWAB COLLECTED AND SENT TO LAB
--- NOTE | 2021-03-12 01:56 | NUR ---
CALLED AFTER HOUR PHARMACY TO VERIFY THE ADMITTING ORDERS
[2021-03-12] MEDS ORDERED: ONDANSETRON HCL/PF 4 MG/2 ML VIAL ONE (04:32)
[2021-03-12] MEDS ORDERED: ACETAMINOPHEN 325 MG TABLET ONE (04:32)
[2021-03-12] MEDS: ONDANSETRON HCL/PF 4 MG/2 ML VIAL IVP PRN ×2 (04:38→20:04)
[2021-03-12] MEDS: ACETAMINOPHEN 325 MG TABLET PO PRN ×2 (04:38→20:04)
[2021-03-12] MEDS: IV NS 0.9% 1,000 ML IV PRN ×2 (05:13→15:15)
[2021-03-12 05:56] LABS: HEMATOCRIT 37 % (33-45); LYMPHOCYTES # (AUTO) 0.9 K/uL (0.8-4.8); NEUTROPHILS # (AUTO) 12.5 K/uL (1.8-8.9)
[2021-03-12 06:03] LABS: BASOPHILS % (AUTO) 0.2 % (0.0-2.0); HEMOGLOBIN 12.6 g/dL (11.5-14.8); LYMPHOCYTES % (AUTO) 6.2 % (20.0-44.0); MEAN CORPUSCULAR HGB CONC 34 g/dl (31.0-36.0); MEAN CORPUSCULAR VOLUME 89 fL (82-100); MONOCYTES # (AUTO) 0.5 K/uL (0.1-1.30); MONOCYTES % (AUTO) 3.3 % (2.0-12.0); NEUTROPHILS % (AUTO) 90.3 % (43.0-81.0); PLATELET COUNT (AUTO) 259 K/uL (150-450); RED BLOOD CELL COUNT(AUTO) 4.16 MIL/uL (4.0-5.2); WHITE BLOOD COUNT (AUTO) 13.8 K/uL (4.3-11.0)
[2021-03-12 06:16] LABS: ALBUMIN 2.9 g/dL (3.4-5.0); BILIRUBIN,TOTAL 0.3 mg/dL (0.2-1.0); CALCIUM, SERUM 7.8 mg/dL (8.5-10.1); CREATININE 0.6 mg/dL (0.6-1.3); MAGNESIUM 1.8 mg/dL (1.8-2.4); PHOSPHORUS 2.4 mg/dL (2.5-4.9); POTASSIUM 3.2 mmol/L (3.5-5.1); TOTAL PROTEIN, SERUM 6.8 g/dL (6.4-8.2)
[2021-03-12] MEDS: VANCOMYCIN 1 GM in IV D5W 250 ML IV SCH ×2 (07:18→16:15)
[2021-03-12] MEDS: LEVOTHYROXINE SODIUM 75 MCG TABLET PO SCH (07:30)
[2021-03-12] MEDS ORDERED: LEVOTHYROXINE SODIUM 25 MCG TABLET ONE (07:38)
[2021-03-12] MEDS ORDERED: LEVOTHYROXINE SODIUM 50 MCG TABLET ONE (07:38)
[2021-03-12] MEDS: SUMATRIPTAN SUCCINATE 25 MG TABLET PO PRN ×2 (08:45→21:42)
[2021-03-12] MEDS ORDERED: SUMATRIPTAN SUCCINATE 25 MG TABLET ONE ×2 (08:47→21:16)
[2021-03-12] MEDS: CEFTRIAXONE 2 G in IV D5W 50 ML IV SCH ×2 (09:15→17:07)
[2021-03-12] MEDS: FERROUS SULFATE (325 MG) 325 MG/TAB TABLET PO SCH (09:15)
--- NOTE | 2021-03-12 10:15 | NUR ---
PATIENT SLEEPING, EASILY AROUSABLE, FAMILY AT BEDSIDE, AWAITING BED ASSIGNMENT
--- NOTE | 2021-03-12 10:57 | NUR ---
MED RECON/WREATH AND [facility]ARLAND MAKER HOME MEDICATION INFORMATION UPDATED. ADRIEN RESENDEZ MADE AWARE RE: PATIENT NOT LEVOTHYROXINE AT HOME ANYMORE. WITH NEW ORDER TO HOLD LEVOTHYROXINE AT THIS TIME AND TO DO TSH LEVEL. BLOSSOM WATSON AWARE.
[2021-03-12] MEDS ORDERED: IV NS 0.9% 250 ML IV ONE (11:16)
[2021-03-12] MEDS ORDERED: IOHEXOL-300 100 ML VIAL IV ONE (11:16)
--- NOTE | 2021-03-12 11:23 | NUR ---
PT TAKEN TO CT VIA SHRADDHA
[2021-03-12] MEDS ORDERED: K PHOS NEUTRAL 250 MG TABLET PO ONE (12:00)
[2021-03-12] MEDS ORDERED: POTASSIUM CHLORIDE 20 MEQ TAB.PRT.SR PO ONE (12:05)
[2021-03-12] MEDS ORDERED: K PHOS NEUTRAL 250 MG TABLET ONE (12:06)
[2021-03-12] MEDS: POTASSIUM CHLORIDE 20 MEQ TAB.PRT.SR PO SCH ×2 (12:09→14:59)
--- NOTE | 2021-03-12 13:50 | NUR ---
GOT BED 113-1
--- NOTE | 2021-03-12 14:03 | NUR ---
REPORT GIVEN TO ZORA ORANTES RN FOR BAN
--- NOTE | 2021-03-12 14:13 | NUR ---
THE PATIENT IS TRANSFERED TO [facility] PER ACLS POLICY
--- NOTE | 2021-03-12 14:30 | NUR ---
a female 51 yeals old admitted to room 113-2 patient alert oriented x3 resp unlabored no sob noted vitals taken and recorded temp 99.2f SR 95 pulse ox 98% b/p is 101/61 patient encourage use of call light to make all needs known will continue to assess and evaluate at bed side all belongings checked and recorded
[2021-03-12] MEDS ORDERED: POTASSIUM CHLORIDE 20 MEQ TAB.PRT.SR PO SCH (15:00)
--- NOTE | 2021-03-12 15:30 | NUR ---
iv started with normal saline at 75ml/hr as ordered up to bathroom and voided well back to bed and made patient comfortable call light with in reach
[2021-03-12 15:55] VITALS: BP 101/61
[2021-03-12 16:00] VITALS: BP 102/61
[2021-03-12 16:06] VITALS: BP 102/61
--- NOTE | 2021-03-12 18:00 | NUR ---
condition unchanged from previous assessment will continue to assess and evaluate call light with in reach
--- NOTE | 2021-03-12 18:47 | NUR ---
RN NOTE PT ADMITTED FOR SEPSIS CEPHALGIA R/O MIGRAINES. A/OX4, ON RA, O2 98%, NO S/SX OF BREATHING DISTRESS, NSR, SKIN DRY, CLEAN AND INTACT. PT AMBULATORY TO THE BATHROOM. IV SITE AC #20 INFUSED AND PATENT. ATB GIVEN, NO S/SX OF ASE NOTED. SAFETY MEASURES OBSERVED. WILL ENDORSE TO NOC SHIFT
--- NOTE | 2021-03-12 19:45 | NUR ---
OUTCOMES ANALYST OPENING NOTE RECEIVED PATIENT RESTING IN BED WITH AT SITE. PATIENT ON TELE WITH SINUS RYTHM, HR AT 86. PATIENT ON ROOM AIR WITH NO LABOR BREATHING OR IN DISTRESS. HAS A LEFT AC IV SITE 20G. SKIN DRY AND INTACT. ALL SAFETY MEASURES TAKEN, BED IN LOW POSITION, LOCKED, TWO SIDE RAILS UP, AND CALL LIGHT WITHIN REACH.
[2021-03-12 20:00] VITALS: BP 116/58
[2021-03-12] MEDS ORDERED: CEFTRIAXONE 2 G in IV D5W 50 ML IV SCH (20:00)
[2021-03-12] MEDS ORDERED: BUTALB/APAP/CAFFEINE 1 EACH TABLET PO PRN (20:30)
[2021-03-12] MEDS: METRONIDAZOLE 500 MG TABLET PO SCH (21:53)
[2021-03-12] MEDS: HEPARIN SODIUM, PORCINE 5000 UNITS/1 ML VIAL SQ SCH (21:53)
[2021-03-12] MEDS ORDERED: ACYCLOVIR IV 500 MG VIAL IV ONE (23:26)
[2021-03-12] MEDS: ACYCLOVIR IV 500 MG in IV D5W 100 ML IV SCH (23:36)
[2021-03-13] VITALS: BP 106/66
[2021-03-13 04:00] VITALS: BP 113/67
[2021-03-13] MEDS: METRONIDAZOLE 500 MG TABLET PO SCH ×3 (05:37→20:29)
[2021-03-13] MEDS ORDERED: ACYCLOVIR IV 500 MG VIAL IV ONE (05:42)
[2021-03-13] MEDS: ACYCLOVIR IV 500 MG in IV D5W 100 ML IV SCH ×3 (05:44→20:29)
--- NOTE | 2021-03-13 06:30 | NUR ---
NEEDLE GRINDER CLOSING NOTE PATIENT RESTING IN BED WITH AT SITE. PATIENT ON TELE WITH SINUS RYTHM, HR AT 84. PATIENT ON ROOM AIR WITH NO LABOR BREATHING OR IN DISTRESS. HAS A LEFT AC IV SITE 20G. SKIN DRY AND INTACT. AMBULATORY AND A/O X4. PATIENT IS CONGOLESE SPEAKING.ALL SAFETY MEASURES TAKEN, BED IN LOW POSITION, LOCKED, TWO SIDE RAILS UP, AND CALL LIGHT WITHIN REACH. WILL ENDORSE PLAN OF CARE TO ONCOMING SHIFT.
[2021-03-13 07:54] LABS: BASOPHILS % (AUTO) 0.5 % (0.0-2.0); EOSINOPHILS % (AUTO) 1.1 % (0.0-6.0); HEMATOCRIT 36 % (33-45); LYMPHOCYTES # (AUTO) 1.9 K/uL (0.8-4.8); LYMPHOCYTES % (AUTO) 25.9 % (20.0-44.0); MEAN CORPUSCULAR HGB CONC 34 g/dl (31.0-36.0); MEAN CORPUSCULAR VOLUME 90 fL (82-100); MONOCYTES # (AUTO) 0.4 K/uL (0.1-1.30); MONOCYTES % (AUTO) 5.9 % (2.0-12.0); NEUTROPHILS # (AUTO) 4.9 K/uL (1.8-8.9); NEUTROPHILS % (AUTO) 66.6 % (43.0-81.0); PLATELET COUNT (AUTO) 240 K/uL (150-450); RED BLOOD CELL COUNT(AUTO) 3.96 MIL/uL (4.0-5.2); WHITE BLOOD COUNT (AUTO) 7.4 K/uL (4.3-11.0)
--- NOTE | 2021-03-13 07:55 | NUR ---
RN NOTE PATIENT RESTING IN BED WITH AT BED SITE. PATIENT ON TELE WITH SINUS RYTHM, . PATIENT ON ROOM AIR WITH NO LABOR BREATHING OR IN DISTRESS. HAS A LEFT AC IV SITE 20G. SKIN DRY AND INTACT. AMBULATORY AND A/O X4. ALL SAFETY MEASURES OBSERVED, BED IN LOW POSITION, LOCKED, AND CALL LIGHT WITHIN REACH. WILL CONTINUE ASSESS AND MONITOR AND BAN.
[2021-03-13 08:00] VITALS: BP 95/69
[2021-03-13] MEDS: LEVOTHYROXINE SODIUM 75 MCG TABLET PO SCH (08:26)
[2021-03-13] MEDS: FERROUS SULFATE (325 MG) 325 MG/TAB TABLET PO SCH (08:26)
[2021-03-13 08:29] LABS: CALCIUM, SERUM 8.2 mg/dL (8.5-10.1); CREATININE 0.6 mg/dL (0.6-1.3); MAGNESIUM 1.9 mg/dL (1.8-2.4); POTASSIUM 3.1 mmol/L (3.5-5.1)
[2021-03-13] MEDS ORDERED: CEFTRIAXONE 2 G in IV D5W 50 ML IV SCH (09:00)
[2021-03-13] MEDS: HEPARIN SODIUM, PORCINE 5000 UNITS/1 ML VIAL SQ SCH ×2 (09:10→20:30)
[2021-03-13] MEDS: CEFTRIAXONE 2 G in IV D5W 100 ML IV SCH (09:16)
[2021-03-13] MEDS: SUMATRIPTAN SUCCINATE 25 MG TABLET PO PRN (09:20)
[2021-03-13] MEDS: POTASSIUM CHLORIDE 20 MEQ TAB.PRT.SR PO SCH ×2 (11:26→12:00)
[2021-03-13 12:00] VITALS: BP 101/70
[2021-03-13] MEDS ORDERED: POTASSIUM CHLORIDE 20 MEQ TAB.PRT.SR PO SCH (13:30)
--- NOTE | 2021-03-13 13:43 | NUR ---
RN NOTE DUPLICATE ORDER, ADMINISTERED 40 MEQ POTASSIUM PO ORDERED.
[2021-03-13 16:00] VITALS: BP 113/67
[2021-03-13] MEDS: IV NS 0.9% 1,000 ML IV PRN (17:03)
--- NOTE | 2021-03-13 19:00 | NUR ---
RN NOTE PATIENT RESTING IN BED WITH AT BED SITE. PATIENT ON TELE WITH SINUS RHYTHM AT THIS TIME, . PATIENT ON ROOM AIR BREATHING EVEN AND UNLABORED. HAS A LEFT AC IV SITE 20G. SKIN DRY AND INTACT. AMBULATORY AND A/O X4. ON IV ATB NO ASE NOTED, STOOL SPECIMEN COLLECTED ORDERED,SAFETY MEASURES OBSERVED, AND CALL LIGHT WITHIN REACH. WILL ENDORSE TO NOC SHIFT.
--- NOTE | 2021-03-13 19:30 | NUR ---
RN OPENING NOTE RECEIVED PATIENT IN BED.A/OX4. BELARUSIAN SPEAKING BUT ABLE TO MAKE BASIC NEEDS KNOWN. TOLERATING ROOM AIR. RESPIRATIONS ARE EVEN AND UNLABORED. NO S/S SOB NOTED. STATES PAIN IN IV SITE. IN NO APPARENT DISTRESS. TELE MONITOR READS SINUS RHYTHM HR 70.IV ACCESS IN LAC#20 RED AND TENDER. INFORMED PATIENT I WILL NEED TO CHANGE IV, PATIENT AGREED. BED IS LOW AND LOCKED, HOB ELEVATED IN SEMI FOWLERS, SIDE RAILS UP X2, CALL LIGHT WITHIN REACH.
[2021-03-13 20:00] VITALS: BP 119/66
[2021-03-14] VITALS: BP 110/70
[2021-03-14] MEDS: SUMATRIPTAN SUCCINATE 25 MG TABLET PO PRN ×3 (00:27→20:34)
[2021-03-14 04:00] VITALS: BP 118/69
[2021-03-14] MEDS: ACYCLOVIR IV 500 MG in IV D5W 100 ML IV SCH ×2 (05:16→12:00)
[2021-03-14] MEDS: METRONIDAZOLE 500 MG TABLET PO SCH ×3 (05:16→20:22)
--- NOTE | 2021-03-14 06:25 | NUR ---
RN CLOSING NOTE RESTING IN BED.A/OX4.REMAINS TOLERATING ROOM AIR. NO RESP DISTRESS. C/O MIGRAINE , MANAGED WITH IMITREX. SINUS RHYTHM . NEW IV ACCESS IN LEFT WRIST#20 RUNNING NS@75ML/HR. BED REMAINS LOW AND LOCKED, HOB ELEVATED IN SEMI FOWLERS, SIDE RAILS UP X2, CALL LIGHT WITHIN REACH. WILL ENDORSE TO ONCOMING SHIFT
--- NOTE | 2021-03-14 07:24 | NUR ---
RN OPENING NOTES; RECEIVED PT IN BED IN SUPINE POS. PT A/OX4, PAKISTANI SPEAKING. SKIN IS INTACT. NO SOB, OR DISTRESS NOTED, NO C/O PAIN AT THIS TIME. ALL SAFETY MEASURES RENDERED, BED LOCKED IN LOWEST POS. SIDE RAILS UP X2, WITH CALL LIGHT WITHIN REACH. WILL CONTINUE TO MONITOR.
[2021-03-14 07:44] LABS: BASOPHILS % (AUTO) 0.6 % (0.0-2.0); HEMATOCRIT 36 % (33-45); HEMOGLOBIN 12.1 g/dL (11.5-14.8); LYMPHOCYTES # (AUTO) 2.4 K/uL (0.8-4.8); LYMPHOCYTES % (AUTO) 44.1 % (20.0-44.0); MEAN CORPUSCULAR HGB CONC 33 g/dl (31.0-36.0); MEAN CORPUSCULAR VOLUME 90 fL (82-100); MONOCYTES # (AUTO) 0.5 K/uL (0.1-1.30); MONOCYTES % (AUTO) 8.5 % (2.0-12.0); NEUTROPHILS # (AUTO) 2.4 K/uL (1.8-8.9); NEUTROPHILS % (AUTO) 43.8 % (43.0-81.0); PLATELET COUNT (AUTO) 274 K/uL (150-450); RED BLOOD CELL COUNT(AUTO) 4.04 MIL/uL (4.0-5.2); WHITE BLOOD COUNT (AUTO) 5.4 K/uL (4.3-11.0)
[2021-03-14] MEDS: LEVOTHYROXINE SODIUM 75 MCG TABLET PO SCH (07:52)
[2021-03-14 07:54] LABS: CREATININE 0.6 mg/dL (0.6-1.3); MAGNESIUM 2.1 mg/dL (1.8-2.4); POTASSIUM 3.4 mmol/L (3.5-5.1)
[2021-03-14 08:00] VITALS: BP 111/66
[2021-03-14] MEDS: CEFTRIAXONE 2 G in IV D5W 100 ML IV SCH (08:22)
[2021-03-14] MEDS: FERROUS SULFATE (325 MG) 325 MG/TAB TABLET PO SCH (08:22)
[2021-03-14] MEDS: HEPARIN SODIUM, PORCINE 5000 UNITS/1 ML VIAL SQ SCH ×2 (08:22→20:23)
[2021-03-14] MEDS: IV NS 0.9% 1,000 ML IV PRN ×2 (08:59→23:40)
[2021-03-14 12:00] VITALS: BP 116/68
[2021-03-14] MEDS: BUTALB/APAP/CAFFEINE 1 EACH TABLET PO PRN ×2 (12:00→17:19)
[2021-03-14] MEDS ORDERED: POTASSIUM CHLORIDE 20 MEQ TAB.PRT.SR PO SCH (12:30)
[2021-03-14 16:00] VITALS: BP 110/66
--- NOTE | 2021-03-14 18:32 | NUR ---
RN CLOSING NOTES; PT IN BED RESTING. PT IS A/OX4, PT ABLE TO MEET HER NEEDS KNOWN. PT TOLERATING ROOM AIR, NO SOB OR DISTRESS NOTED. PAIN MANAGEMENT THROUGHOUT THE DAY, PT TOLERATED PAIN MEDICATION WELL. LAST PAIN MEDICATION GIVEN 1718. ALLYN ML #18 INSERTED TODAY NS 1000ML @75ML/HR, PATENT, FLUSHED WITH NO SIGNS OF INFILTRATION. ABX GIVEN AND TOLERATED WELL. PT KEPT CLEAN, DRY AND COMFORTABLE. NO SIGNIFICANT CHANGES IN PT HEALTH STATUS. ALL SAFETY MEASURES RENDERED, BED IN LOWEST POS. LOCKED WITH CALL LIGHT WITHIN REACH. WILL ENDORSE TO PAPER GUILLOTINE OPERATOR RN. PT IN STABLE CONDITION.
--- NOTE | 2021-03-14 19:50 | NUR ---
RN OPENING NOTES: RECEIVED RESIDENT IN BED BUT ALERT, ORIENTED X4. NO SOB, NO CHEST CONGESTION, BREATHING EVEN AND UNLABORED. ABLE TO MEET HER NEEDS. COOPERATIVE WITH CARE. IV ACCESS ON ALLYN MIDLINE #18. ON 75CC/HR AND PATIENT TOLERATED WELL. NO C/O PAIN OR DISCOMFORT. NO ACUTE DISTRESS. CONTINENT ON BOWEL AND BLADDER. ALL SAFETY MEASURES PROVIDED. BED IN LOW POSITION AND LOCKED. PLACE CALL LIGHT WITH IN REACH. WILL CONTINUE TO MONITOR.
[2021-03-14 20:00] VITALS: BP 127/62
--- NOTE | 2021-03-14 23:50 | NUR ---
RN NOTES, PATIENT C/O INABILITY TO SLEEP AND ASKING FOR SLEEPING PILL, INFORMED ROBIN OG CAP LINING MACHINE OPERATOR AND SHE REPLIED WITH ORDER FOR RESTORIL 15MG Q HS PRN, ORDER NOTED AND CARRIED OUT.
[2021-03-15] VITALS: BP 104/65
[2021-03-15] MEDS ORDERED: TEMAZEPAM 15 MG CAPSULE PO PRN
[2021-03-15 04:00] VITALS: BP 106/58
[2021-03-15] MEDS: METRONIDAZOLE 500 MG TABLET PO SCH ×2 (04:45→13:21)
--- NOTE | 2021-03-15 06:52 | NUR ---
RN CLOSING NOTES: PATIENT IN BED SLEEPING AT THIS MOMENT BUT EASILY AROUSABLE. ALERT, ORIENTED X 4. BREATHING EVEN AND UNLABORED. ON ROOM AIR. O2 SAT 98%. GIVEN ALL DUE MEDS ORDERED. IV ACCESS ON ALLYN #18 G INTACT AND PATENT. RUNNING NS 75CC/HR. PATIENT REMAIN AFEBRILE. NO S/S OF DEHYDRATIONS. NO C/O PAIN OR DISCOMFORT AT THIS MOMENT. NO C/O HEADACHE. NO RESPIRATORY DISTRESS. ABLE TO GO TO THE RESTROOM BY HERSELF. ALL SAFETY MEASURES PROVIDED. BED IN LOW POSITION AND LOCKED. PLACE CALL LIGHT WITH IN REACH. WILL ENDORSE TO MORNING SHIFT.
[2021-03-15 07:14] LABS: BASOPHILS # (AUTO) 0.1 K/uL (0.0-0.2); BASOPHILS % (AUTO) 0.9 % (0.0-2.0); EOSINOPHILS % (AUTO) 3.7 % (0.0-6.0); HEMATOCRIT 37 % (33-45); HEMOGLOBIN 12.4 g/dL (11.5-14.8); LYMPHOCYTES # (AUTO) 2.1 K/uL (0.8-4.8); LYMPHOCYTES % (AUTO) 35.9 % (20.0-44.0); MEAN CORPUSCULAR HGB CONC 34 g/dl (31.0-36.0); MEAN CORPUSCULAR VOLUME 90 fL (82-100); MONOCYTES # (AUTO) 0.5 K/uL (0.1-1.30); MONOCYTES % (AUTO) 8.6 % (2.0-12.0); NEUTROPHILS % (AUTO) 50.9 % (43.0-81.0); PLATELET COUNT (AUTO) 312 K/uL (150-450); RED BLOOD CELL COUNT(AUTO) 4.11 MIL/uL (4.0-5.2); WHITE BLOOD COUNT (AUTO) 5.9 K/uL (4.3-11.0)
--- NOTE | 2021-03-15 07:30 | NUR ---
RN OPENING NOTES RECEIVED PT ON BED AWAKE, VERBALLY RESPONSIVE, NO SIGNS OF ACUTE DISTRESS NOTED. ON ROOM AIR, TOLERATING WELL, NO SOB, BREATHING EVEN AND UNLABORED. NO C/O PAIN OR DISCOMFORT AT THIS TIME. ABDOMEN SOFT AND NON-DISTENDED. ON RESIDENTIAL FINISH CARPENTER WITH CURRENT READING OF NSR WITH HR @ 71. ALLYN ML #18G INTACT AND PATENT WITH NS @75ML/HR RUNNING. SAFETY MEASURES IN PLACE: BED LOCKED AND ON LOWEST POSITION, SR UP X2, CALL LIGHT PLACED WITHIN EASY REACH. WILL CONTINUE TO MONITOR.
[2021-03-15 07:46] LABS: ALBUMIN 3.2 g/dL (3.4-5.0); BILIRUBIN,TOTAL 0.2 mg/dL (0.2-1.0); CALCIUM, SERUM 8.6 mg/dL (8.5-10.1); CREATININE 0.6 mg/dL (0.6-1.3); MAGNESIUM 2.1 mg/dL (1.8-2.4); PHOSPHORUS 4.1 mg/dL (2.5-4.9); POTASSIUM 3.6 mmol/L (3.5-5.1); TOTAL PROTEIN, SERUM 7.3 g/dL (6.4-8.2)
[2021-03-15 08:00] VITALS: BP 115/65
[2021-03-15] MEDS: HEPARIN SODIUM, PORCINE 5000 UNITS/1 ML VIAL SQ SCH (08:04)
[2021-03-15] MEDS: FERROUS SULFATE (325 MG) 325 MG/TAB TABLET PO SCH (08:04)
[2021-03-15] MEDS: LEVOTHYROXINE SODIUM 75 MCG TABLET PO SCH (08:04)
[2021-03-15] MEDS: CEFTRIAXONE 2 G in IV D5W 100 ML IV SCH (09:02)
[2021-03-15 12:00] VITALS: BP 115/65
[2021-03-15] MEDS: SUMATRIPTAN SUCCINATE 25 MG TABLET PO PRN (13:25)
--- NOTE | 2021-03-15 14:50 | NUR ---
CYTOGENETIC TECHNICIAN NOTES PATIENT DISCHARGED HOME IN STABLE CONDITION, A/O X4, ABLE TO MAKE NEEDS KNOWN. VITAL SIGNS TAKEN, STABLE, AND RECORDED. ALL BELONGINGS ACCOUNTED FOR, FORM SIGNED BY PT. IV ACCESS ON ALLYN ML REMOVED, NO ACTIVE BLEEDING NOTED, PRESSURE DRESSING APPLIED. ARM NAMEBAND REMOVED. DISCHARGE INSTRUCTIONS AND HEALTH TEACHINGS PROVIDED TO PT WITH VERBALIZATION OF UNDERSTANDING. PATIENT LEFT UNIT @1447 AMBULATORY, PICKED-UP BY MIL. CN AWARE OF PATIENT'S DISCHARGE.
== END 2021-03-15 16:48 | disposition home or self-care (01) | DRG 872 ==
LOC: ER 18:39 → TRANSITION 03-12 02:41 → TELE-TD 03-12 14:01 → TELE1 03-12 15:30 → MEDSG1 03-15 10:05
PROVIDERS: ADMIT Internal Medicine
PROC: 05HB33Z Insertion of Infusion Device into Right Basilic Vein, Percutaneous Approach (ICD-10-PCS; principal; 2021-03-14)
DX: A41.9 Sepsis, unspecified organism (principal); A09 Infectious gastroenteritis and colitis, unspecified; E03.9 Hypothyroidism, unspecified; R65.20 Severe sepsis without septic shock; Z20.822 Contact with and (suspected) exposure to COVID-19; G43.909 Migraine, unspecified, not intractable, without status migrainosus; Z90.710 Acquired absence of both cervix and uterus; Z79.890 Hormone replacement therapy; Z90.49 Acquired absence of other specified parts of digestive tract; Z82.49 Family history of ischemic heart disease and other diseases of the circulatory system; Z88.5 Allergy status to narcotic agent; Z88.8 Allergy status to other drugs, medicaments and biological substances; Z86.19 Personal history of other infectious and parasitic diseases; K76.0 Fatty (change of) liver, not elsewhere classified
CPT/HCPCS: 36415; 70450-TC; 71045-TC; 80048-TC; 80053-TC; 80076-TC; 80202-TC; 81001; 82945-TC; 83605-TC; 83735-TC; 84100-TC; 84155-TC; 84443-TC; 84484-TC; 84703-TC; 85025-TC; 85730-TC; 86592; 86694; 87040-TC; 87045-TC; 87070-TC; 87081-TC; 87086-TC; 87806; 89051-TC; 89055; A6403; C9803; G0378; J0133; J0696; J1644; J2270; J2405; J3370; J7030; J7050; J7060; Q9967

== ENCOUNTER 2021-09-23 22:35 | Emergency (ER) | payer BC, OTHER ==
[~2021-09-23] VITALS: Ht 165.1 cm; Wt 68.0 kg
[~2021-09-23 22:35] MED LIST changes: -FERR325T28 PO; -LEVO75TA PO
[2021-09-23 23:00] VITALS: BP 127/74
--- NOTE | 2021-09-23 23:00 | NUR ---
BIBDAUGHTER C/O LEFT BREAST PAIN. PT NOTICED "HARD MASS WITH REDNESS AND ITCHINESS AROUND THE LEFT BREAST TODAY. PLACED COMFORTABLY IN BED. VITALS CHECKED.
[2021-09-23] MEDS ORDERED: LIDOCAINE 1% INJ 50 ML MDV IJ ONE (23:47)
[2021-09-23] MEDS ORDERED: SULFAMETH/TRIMETH 800/160 MG 1 UDTAB TABLET ONE (23:48)
[2021-09-23] MEDS ORDERED: CEFTRIAXONE 1 G VIAL ONE (23:48)
[2021-09-23] MEDS ORDERED: diphenhydrAMINE HCL 25 MG CAPSULE ONE (23:48)
[2021-09-23] MEDS ORDERED: DIPH25CA83 PO (23:49)
[2021-09-23] MEDS ORDERED: CEPH500T PO (23:49)
[2021-09-23] MEDS ORDERED: SULF1TAB48 PO (23:49)
[2021-09-24] MEDS ORDERED: CEFTRIAXONE 1 G VIAL IM ONE
[2021-09-24] MEDS ORDERED: SULFAMETH/TRIMETH 800/160 MG 1 UDTAB TABLET PO ONE
[2021-09-24] MEDS ORDERED: diphenhydrAMINE HCL 25 MG CAPSULE PO ONE
--- NOTE | 2021-09-24 00:03 | NUR ---
Patient discharged to home in stable condition. Written and verbal after care instructions given. Patient verbalizes understanding of instruction.
--- NOTE | 2021-09-24 00:04 | NUR ---
EXCUSE NOTE GIVEN FOR WORK
== END 2021-09-24 00:05 | disposition home or self-care (01) ==
LOC: ER 22:45
DX: N61.0 Mastitis without abscess (principal); N63.0 Unspecified lump in unspecified breast; G43.909 Migraine, unspecified, not intractable, without status migrainosus; E03.9 Hypothyroidism, unspecified; Z90.49 Acquired absence of other specified parts of digestive tract; Z98.890 Other specified postprocedural states; Z88.6 Allergy status to analgesic agent; Z88.8 Allergy status to other drugs, medicaments and biological substances; Z79.899 Other long term (current) drug therapy
CPT/HCPCS: 96372; 99283; J0696; J3490; Q0163

== ENCOUNTER 2021-10-03 08:59 | Outpatient (CLI) | payer BC, OTHER ==
[~2021-10-03 08:59] MED LIST changes: +CEPH500T PO; +DIPH25CA83 PO; +SULF1TAB48 PO
[2021-10-03 10:35] LABS: FREE T4 (FREE THYROXINE) 0.87 ng/dL (0.76-1.46); THYROID STIMULATING HORMONE 5.69 uIU/mL (0.358-3.74)
== END 2021-10-03 23:59 | disposition home or self-care (01) ==
LOC: LAB 08:59
PROVIDERS: ATTEND Legal Medicine
DX: E03.9 Hypothyroidism, unspecified (principal)
CPT/HCPCS: 36415; 84439-TC; 84443-TC; 84481

== ENCOUNTER 2022-04-27 00:12 | Emergency (ER) | payer BC, OTHER ==
[~2022-04-27] VITALS: Ht 165.1 cm; Wt 69.9 kg
[2022-04-27] MEDS ORDERED: CARI350T PO (00:49)
[2022-04-27] MEDS ORDERED: PRED50TA PO (00:49)
[2022-04-27] MEDS ORDERED: IBUP-1957 PO (00:49)
[2022-04-27 00:50] VITALS: BP 128/69
[2022-04-27] MEDS ORDERED: DEXAMETHASONE SOD PHOSPHATE 10 MG/ML VIAL ONE (00:59)
[2022-04-27] MEDS ORDERED: KETOROLAC TROMETHAMINE INJ 60 MG/2 ML VIAL IM ONE ×2 (00:59→01:00)
[2022-04-27] MEDS ORDERED: CARISOPRODOL 350 MG TABLET ONE (00:59)
[2022-04-27] MEDS ORDERED: DEXAMETHASONE SOD PHOSPHATE 4 MG/ML VIAL IM ONE (01:00)
[2022-04-27] MEDS ORDERED: CARISOPRODOL 350 MG TABLET PO ONE (01:00)
--- NOTE | 2022-04-27 01:08 | NUR ---
Patient discharged to home in stable condition. Written and verbal after care instructions given. Patient verbalizes understanding of instruction.
== END 2022-04-27 01:09 | disposition home or self-care (01) ==
LOC: ER 00:20
DX: M62.838 Other muscle spasm (principal); M54.12 Radiculopathy, cervical region; G43.909 Migraine, unspecified, not intractable, without status migrainosus; E03.9 Hypothyroidism, unspecified; Z90.710 Acquired absence of both cervix and uterus; Z90.49 Acquired absence of other specified parts of digestive tract; Z88.8 Allergy status to other drugs, medicaments and biological substances; Z79.899 Other long term (current) drug therapy
CPT/HCPCS: 99284; 96372 ×2; J1100; J1885

== ENCOUNTER 2022-06-18 11:14 | Outpatient (CLI) | payer BC, OTHER ==
[~2022-06-18 11:14] MED LIST changes: +CARI350T PO; +IBUP-1957 PO; +PRED50TA PO
[2022-06-18 12:37] LABS: BILIRUBIN,URINE NEGATIVE (NEGATIVE); COLOR,URINE YELLOW (YELLOW); LEUKOCYTE ESTERASE ,URINE 1+ (NEGATIVE); NITRITE, URINE NEGATIVE (NEGATIVE); PROTEIN,URINE NEGATIVE (NEGATIVE); UGLUCOSE NEGATIVE (NEGATIVE); UROBILINOGEN,URINE 0.2 EU/dL (0.2)
[2022-06-18 13:03] LABS: BACTERIA,URINE Moderate /HPF (None Seen); SQUAMOUS EPITHELIAL CELL,UR Moderate /HPF (None Seen)
[2022-06-18 13:10] LABS: HEMATOCRIT 42 % (33-45); HEMOGLOBIN 13.5 g/dL (11.5-14.8); MEAN CORPUSCULAR HGB CONC 32 g/dl (31.0-36.0); MEAN CORPUSCULAR VOLUME 89 fL (82-100); PLATELET COUNT (AUTO) 326 K/uL (150-450); WHITE BLOOD COUNT (AUTO) 5.5 K/uL (4.3-11.0)
[2022-06-18 13:20] LABS: EOSINOPHILS % (MANUAL) 2 % (0-4); LYMPHOCYTES % (MANUAL) 41 % (16-48); MONOCYTES % (MANUAL) 4 % (0-11.0); NEUTROPHILS % (MANUAL) 53 (42-76)
[2022-06-18 15:10] LABS: ALBUMIN 4.1 g/dL (3.4-5.0); BILIRUBIN,TOTAL 0.4 mg/dL (0.2-1.0); CALCIUM, SERUM 9.5 mg/dL (8.5-10.1); CREATININE 0.6 mg/dL (0.6-1.3); POTASSIUM 3.8 mmol/L (3.5-5.1); TOTAL PROTEIN, SERUM 8.3 g/dL (6.4-8.2)
== END 2022-06-18 23:59 | disposition home or self-care (01) ==
LOC: LAB 11:14
PROVIDERS: ATTEND Legal Medicine
DX: Z00.00 Encounter for general adult medical examination without abnormal findings (principal); E78.00 Pure hypercholesterolemia, unspecified; D64.9 Anemia, unspecified; E11.9 Type 2 diabetes mellitus without complications; E55.9 Vitamin D deficiency, unspecified; R53.1 Weakness
CPT/HCPCS: 36415; 80053-TC; 80061-TC; 81001; 82306; 82607-TC; 82728-TC; 83540-TC; 85025-TC

== ENCOUNTER 2022-06-21 11:34 | Outpatient (CLI) | payer BC, OTHER ==
[2022-06-21 12:21] LABS: BILIRUBIN,URINE NEGATIVE (NEGATIVE); COLOR,URINE YELLOW (YELLOW); LEUKOCYTE ESTERASE ,URINE NEGATIVE (NEGATIVE); NITRITE, URINE NEGATIVE (NEGATIVE); PH,URINE 6.5 (5.0-8.0); PROTEIN,URINE NEGATIVE (NEGATIVE); UGLUCOSE NEGATIVE (NEGATIVE); UROBILINOGEN,URINE 0.2 EU/dL (0.2)
[2022-06-21 12:26] LABS: BACTERIA,URINE None seen /HPF (None Seen); SQUAMOUS EPITHELIAL CELL,UR None Seen /HPF (None Seen); WBC,URINE NONE SEEN /HPF (0-3)
[2022-06-21 13:04] LABS: CALCIUM, SERUM 9.4 mg/dL (8.5-10.1); CREATININE 0.6 mg/dL (0.6-1.3); POTASSIUM 3.8 mmol/L (3.5-5.1)
[2022-06-21] MEDS ORDERED: SUMA50TA PO (22:01)
== END 2022-06-21 23:59 | disposition home or self-care (01) ==
LOC: LAB 11:34
PROVIDERS: ATTEND Legal Medicine
DX: Z00.00 Encounter for general adult medical examination without abnormal findings (principal); E11.9 Type 2 diabetes mellitus without complications; N39.0 Urinary tract infection, site not specified
CPT/HCPCS: 36415; 80048-TC; 81001; 87086-TC

== ENCOUNTER 2022-06-21 20:22 | Emergency (ER) | payer BC, OTHER ==
[~2022-06-21] VITALS: Ht 165.1 cm; Wt 70.3 kg
--- NOTE | 2022-06-21 20:34 | NUR ---
BIBS FROM WORK C/O HEADACHE, DIZZYNESS AND NAUSEA X 1700 DENIES VOMITING. PT A/OX4. TOLERATING R/A WELL WITH NO RESP DISTRESS. SAFETY MEASURES IN PLACE.
[2022-06-21] MEDS ORDERED: SUMATRIPTAN SUCCINATE 6 MG/0.5 ML VIAL SQ ONE ×2 (20:48→21:00)
[2022-06-21] MEDS ORDERED: diphenhydrAMINE HCL 50 MG/ML VIAL ONE (20:48)
[2022-06-21] MEDS ORDERED: diphenhydrAMINE HCL 50 MG/ML VIAL IV ONE (21:00)
[2022-06-21] MEDS ORDERED: IV NS 0.9% 1,000 ML BAG IV ONE (21:00)
[2022-06-21 21:07] LABS: BASOPHILS # (AUTO) 0.1 K/uL (0.0-0.2); BASOPHILS % (AUTO) 0.8 % (0.0-2.0); EOSINOPHILS % (AUTO) 1.9 % (0.0-6.0); HEMATOCRIT 40 % (33-45); HEMOGLOBIN 13.1 g/dL (11.5-14.8); LYMPHOCYTES # (AUTO) 2.6 K/uL (0.8-4.8); LYMPHOCYTES % (AUTO) 31.7 % (20.0-44.0); MEAN CORPUSCULAR HGB CONC 33 g/dl (31.0-36.0); MEAN CORPUSCULAR VOLUME 88 fL (82-100); MONOCYTES # (AUTO) 0.5 K/uL (0.1-1.30); MONOCYTES % (AUTO) 6.4 % (2.0-12.0); NEUTROPHILS # (AUTO) 4.8 K/uL (1.8-8.9); NEUTROPHILS % (AUTO) 59.2 % (43.0-81.0); PLATELET COUNT (AUTO) 332 K/uL (150-450); WHITE BLOOD COUNT (AUTO) 8.2 K/uL (4.3-11.0)
[2022-06-21 21:40] LABS: CALCIUM, SERUM 8.9 mg/dL (8.5-10.1); CREATININE 0.7 mg/dL (0.6-1.3); POTASSIUM 3.8 mmol/L (3.5-5.1)
[2022-06-21 21:48] LABS: ALBUMIN 3.8 g/dL (3.4-5.0); BILIRUBIN,DIRECT 0.1 mg/dL (0.0-0.2); BILIRUBIN,TOTAL 0.2 mg/dL (0.2-1.0); TOTAL PROTEIN, SERUM 7.9 g/dL (6.4-8.2)
[2022-06-21] MEDS ORDERED: SUMA50TA PO (22:01)
--- NOTE | 2022-06-21 22:53 | NUR ---
Patient discharged to home in stable condition. Written and verbal after care instructions given. Patient verbalizes understanding of instruction. IV removed. Catheter intact and site benign. Pressure and 4x4 applied to site. No bleeding noted. PT ambulatory with a steady gait
[2022-06-21 22:55] VITALS: BP 118/74
== END 2022-06-21 22:55 | disposition home or self-care (01) ==
LOC: ER 20:23
DX: G43.909 Migraine, unspecified, not intractable, without status migrainosus (principal); E03.9 Hypothyroidism, unspecified; Z90.710 Acquired absence of both cervix and uterus; Z90.49 Acquired absence of other specified parts of digestive tract; Z88.8 Allergy status to other drugs, medicaments and biological substances; Z79.899 Other long term (current) drug therapy
CPT/HCPCS: 99284; 96374; 96361; 85025; 80048; 80076; 36415; 96372; J1200; J3030; J7030

== ENCOUNTER 2022-07-11 00:37 | Emergency (ER) | payer BC, OTHER ==
[~2022-07-11] VITALS: Ht 165.1 cm; Wt 72.6 kg
[~2022-07-11 00:37] MED LIST changes: +SUMA50TA PO
[2022-07-11 01:07] VITALS: BP 127/82
[2022-07-11] MEDS ORDERED: AMOX500C2 PO (01:10)
[2022-07-11] MEDS ORDERED: AMOXICILLIN TRIHYDRATE 250 MG CAPSULE ONE (01:18)
--- NOTE | 2022-07-11 01:21 | NUR ---
Patient discharged to home in stable condition. Written and verbal after care instructions given. Patient verbalizes understanding of instruction.
[2022-07-11] MEDS ORDERED: AMOXICILLIN TRIHYDRATE 500 MG CAPSULE PO ONE (01:30)
== END 2022-07-11 01:37 | disposition home or self-care (01) ==
LOC: ER 00:40
DX: H66.91 Otitis media, unspecified, right ear (principal); G43.909 Migraine, unspecified, not intractable, without status migrainosus; E03.9 Hypothyroidism, unspecified; Z90.710 Acquired absence of both cervix and uterus; Z90.49 Acquired absence of other specified parts of digestive tract; Z88.8 Allergy status to other drugs, medicaments and biological substances; Z79.899 Other long term (current) drug therapy

== ENCOUNTER 2023-02-15 09:37 | Emergency (ER) | payer BC, OTHER ==
[~2023-02-15] VITALS: Ht 165.1 cm; Wt 70.3 kg
[~2023-02-15 09:37] MED LIST changes: +AMOX500C2 PO
[2023-02-15 09:44] VITALS: BP 121/76; TEMP 97.8
[2023-02-15] MEDS ORDERED: DIPH25CA83 PO (11:07)
[2023-02-15] MEDS ORDERED: PRED20TA PO (11:07)
[2023-02-15] MEDS ORDERED: DEXT15DR6 EACHEYE (11:07)
[2023-02-15] MEDS ORDERED: GLY/480L3 TP (11:07)
[2023-02-15 11:18] VITALS: O2SAT 99
== END 2023-02-15 11:18 | disposition home or self-care (01) ==
LOC: ER 09:37
DX: L30.9 Dermatitis, unspecified (principal); G43.909 Migraine, unspecified, not intractable, without status migrainosus; E03.9 Hypothyroidism, unspecified; F32.A Depression, unspecified; Z90.710 Acquired absence of both cervix and uterus; Z90.49 Acquired absence of other specified parts of digestive tract; Z88.8 Allergy status to other drugs, medicaments and biological substances; Z79.899 Other long term (current) drug therapy

== ENCOUNTER 2023-05-08 15:07 | Emergency (ER) | payer BC, OTHER ==
[~2023-05-08] VITALS: Ht 165.1 cm; Wt 71.7 kg
[~2023-05-08 15:07] MED LIST changes: +DEXT15DR6 EACHEYE; +GLY/480L3 TP; +PRED20TA PO
[2023-05-08 15:22] VITALS: TEMP 98.7
[2023-05-08 16:00] LABS: APPEARANCE,URINE CLEAR (CLEAR); BILIRUBIN,URINE NEGATIVE (NEGATIVE); BLOOD, URINE 1+ Ery/uL (NEGATIVE); COLOR,URINE YELLOW (YELLOW); KETONES,URINE NEGATIVE (NEGATIVE); LEUKOCYTE ESTERASE ,URINE 2+ (NEGATIVE); NITRITE, URINE NEGATIVE (NEGATIVE); PROTEIN,URINE NEGATIVE (NEGATIVE); UGLUCOSE NEGATIVE (NEGATIVE); UROBILINOGEN,URINE 0.2 EU/dL (0.2)
[2023-05-08 16:14] LABS: ADD URINE CULTURE YES; BACTERIA,URINE Few /HPF (None Seen); SQUAMOUS EPITHELIAL CELL,UR Few /HPF (None Seen); WBC,URINE 0-2 /HPF (0-3)
[2023-05-08] MEDS ORDERED: ACETAMINOPHEN ES 500 MG TABLET ONE (17:50)
[2023-05-08 17:55] VITALS: BP 125/68; O2SAT 98
[2023-05-08] MEDS ORDERED: ACETAMINOPHEN ES 500 MG TABLET PO ONE (18:00)
== END 2023-05-08 17:55 | disposition home or self-care (01) ==
LOC: ER 15:21
DX: R50.9 Fever, unspecified (principal); G43.909 Migraine, unspecified, not intractable, without status migrainosus; F32.A Depression, unspecified; E03.9 Hypothyroidism, unspecified; Z90.710 Acquired absence of both cervix and uterus; Z90.49 Acquired absence of other specified parts of digestive tract; Z88.8 Allergy status to other drugs, medicaments and biological substances; Z79.899 Other long term (current) drug therapy; Z20.822 Contact with and (suspected) exposure to COVID-19
CPT/HCPCS: 81001; 87086-TC

== ENCOUNTER 2023-11-03 19:26 | Emergency (ER) | payer BC, OTHER ==
[~2023-11-03] VITALS: Ht 162.6 cm; Wt 72.6 kg
[2023-11-03 21:06] LABS: APPEARANCE,URINE TURBID (CLEAR); BILIRUBIN,URINE 1+ (NEGATIVE); BLOOD, URINE 3+ Ery/uL (NEGATIVE); COLOR,URINE DARK YELLOW (YELLOW); KETONES,URINE TRACE mg/dL (NEGATIVE); LEUKOCYTE ESTERASE ,URINE 3+ (NEGATIVE); NITRITE, URINE NEGATIVE (NEGATIVE); PROTEIN,URINE 2+ mg/dl (NEGATIVE); UGLUCOSE NEGATIVE (NEGATIVE)
[2023-11-03 21:35] LABS: RBC,URINE 81-100 /HPF (0-2)
[2023-11-03] MEDS ORDERED: IBUP-1953 PO (21:35)
[2023-11-03] MEDS ORDERED: CEPH500T PO (21:35)
[2023-11-03 21:36] LABS: ADD URINE CULTURE YES; BACTERIA,URINE 1+ /HPF (None Seen); WBC,URINE 81-100 /HPF (0-3)
[2023-11-03 21:37] LABS: BASOPHILS # (AUTO) 0.1 K/uL (0.0-0.2); BASOPHILS % (AUTO) 0.7 % (0.0-2.0); EOSINOPHILS % (AUTO) 0.2 % (0.0-6.0); HEMATOCRIT 39 % (33-45); HEMOGLOBIN 12.9 g/dL (11.5-14.8); LYMPHOCYTES # (AUTO) 2.5 K/uL (0.8-4.8); LYMPHOCYTES % (AUTO) 14.8 % (20.0-44.0); MEAN CORPUSCULAR HEMOGLOBIN 29 PG (26.0-33.0); MEAN CORPUSCULAR HGB CONC 33 g/dl (31.0-36.0); MEAN CORPUSCULAR VOLUME 89 fL (82-100); MONOCYTES # (AUTO) 0.8 K/uL (0.1-1.30); MONOCYTES % (AUTO) 4.8 % (2.0-12.0); NEUTROPHILS # (AUTO) 13.4 K/uL (1.8-8.9); NEUTROPHILS % (AUTO) 79.5 % (43.0-81.0); PLATELET COUNT (AUTO) 321 K/uL (150-450); RED BLOOD CELL COUNT(AUTO) 4.39 MIL/uL (4.0-5.2); RED CELL DISTRIBUTION WIDTH 13.5 % (11.5-15.0); WHITE BLOOD COUNT (AUTO) 16.8 K/uL (4.3-11.0)
[2023-11-03 21:42] VITALS: BP 134/86; TEMP 98.6; O2SAT 99
[2023-11-03 21:46] LABS: CALCIUM, SERUM 9.1 mg/dL (8.5-10.1); CREATININE 0.6 mg/dL (0.6-1.3); POTASSIUM 3.4 mmol/L (3.5-5.1)
== END 2023-11-03 21:42 | disposition home or self-care (01) ==
LOC: ER 19:27
DX: N39.0 Urinary tract infection, site not specified (principal); R31.9 Hematuria, unspecified; R30.0 Dysuria; G43.909 Migraine, unspecified, not intractable, without status migrainosus; F32.A Depression, unspecified; E03.9 Hypothyroidism, unspecified; Z90.49 Acquired absence of other specified parts of digestive tract; Z88.8 Allergy status to other drugs, medicaments and biological substances
CPT/HCPCS: 36415; 80048-TC; 81001; 85025-TC

== ENCOUNTER 2024-08-03 21:33 | Emergency (ER) | payer BC, OTHER ==
[~2024-08-03] VITALS: Ht 160 cm; Wt 72.6 kg
[~2024-08-03 21:33] MED LIST changes: +IBUP-1953 PO
[2024-08-03 22:45] LABS: BASOPHILS # (AUTO) 0.1 K/uL (0.0-0.2); BASOPHILS % (AUTO) 1.1 % (0.0-2.0); EOSINOPHILS # (AUTO) 0.2 K/uL (0.0-0.7); EOSINOPHILS % (AUTO) 2.2 % (0.0-6.0); HEMATOCRIT 39 % (33-45); HEMOGLOBIN 12.9 g/dL (11.5-14.8); LYMPHOCYTES # (AUTO) 3.3 K/uL (0.8-4.8); LYMPHOCYTES % (AUTO) 38.2 % (20.0-44.0); MEAN CORPUSCULAR HEMOGLOBIN 29 PG (26.0-33.0); MEAN CORPUSCULAR HGB CONC 33 g/dl (31.0-36.0); MEAN CORPUSCULAR VOLUME 88 fL (82-100); MONOCYTES # (AUTO) 0.6 K/uL (0.1-1.30); MONOCYTES % (AUTO) 6.8 % (2.0-12.0); NEUTROPHILS # (AUTO) 4.4 K/uL (1.8-8.9); NEUTROPHILS % (AUTO) 51.7 % (43.0-81.0); PLATELET COUNT (AUTO) 319 K/uL (150-450); RED BLOOD CELL COUNT(AUTO) 4.48 MIL/uL (4.0-5.2); RED CELL DISTRIBUTION WIDTH 13.6 % (11.5-15.0); WHITE BLOOD COUNT (AUTO) 8.5 K/uL (4.3-11.0)
[2024-08-03 22:55] LABS: CALCIUM, SERUM 9.3 mg/dL (8.5-10.1); CREATININE 0.6 mg/dL (0.6-1.3); POTASSIUM 3.8 mmol/L (3.5-5.1)
[2024-08-03 23:08] LABS: ALBUMIN 3.8 g/dL (3.4-5.0); BILIRUBIN,TOTAL 0.2 mg/dL (0.2-1.0); TOTAL PROTEIN, SERUM 7.7 g/dL (6.4-8.2)
[2024-08-03 23:46] LABS: APPEARANCE,URINE CLEAR (CLEAR); BILIRUBIN,URINE NEGATIVE (NEGATIVE); BLOOD, URINE NEGATIVE Ery/uL (NEGATIVE); COLOR,URINE YELLOW (YELLOW); KETONES,URINE NEGATIVE (NEGATIVE); LEUKOCYTE ESTERASE ,URINE 2+ (NEGATIVE); NITRITE, URINE NEGATIVE (NEGATIVE); PH,URINE 7.5 (5.0-8.0); PROTEIN,URINE NEGATIVE (NEGATIVE); UGLUCOSE NEGATIVE (NEGATIVE); UROBILINOGEN,URINE 0.2 EU/dL (0.2)
[2024-08-04 00:04] LABS: AMPHETAMINE, URINE NEGATIVE (NEGATIVE); BARBITURATE, URINE NEGATIVE (NEGATIVE); BENZODIAZEPINE, URINE NEGATIVE (NEGATIVE); CANNABINOID, URINE NEGATIVE (NEGATIVE); COCCAINE, URINE NEGATIVE (NEGATIVE); OPIATE, URINE NEGATIVE (NEGATIVE); PHENCYCLIDINE SCREEN,URINE NEGATIVE (NEGATIVE)
[2024-08-04 00:25] LABS: ADD URINE CULTURE YES; BACTERIA,URINE Few /HPF (None Seen); SQUAMOUS EPITHELIAL CELL,UR Moderate /HPF (None Seen)
[2024-08-04] MEDS ORDERED: KETOROLAC TROMETHAMINE INJ 30 MG/ML VIAL ONE (00:47)
[2024-08-04] MEDS: KETOROLAC TROMETHAMINE INJ 30 MG/ML VIAL IV ONE (00:52)
[2024-08-04 03:03] VITALS: BP 132/79; TEMP 98; O2SAT 100
== END 2024-08-04 02:15 | disposition home or self-care (01) ==
LOC: ER 21:37
DX: R07.89 Other chest pain (principal); E03.9 Hypothyroidism, unspecified; F32.A Depression, unspecified; Z79.1 Long term (current) use of non-steroidal anti-inflammatories (NSAID); Z79.52 Long term (current) use of systemic steroids; Z88.5 Allergy status to narcotic agent; Z90.49 Acquired absence of other specified parts of digestive tract; Z90.710 Acquired absence of both cervix and uterus; Z79.899 Other long term (current) drug therapy
CPT/HCPCS: 99285; 71045; 93005; 85025; 85378; 36415 ×2; 80053; 84484 ×2; 83880; 80307; 81001; 96372; J1885